=== PATIENT | female | born 1940 | race Caucasian/White ===

== ENCOUNTER 2019-04-08 00:31 | Inpatient (IN) | payer MEDICARE, BC ==
[~2019-04-08] VITALS: Ht 157.5 cm; Wt 92.1 kg
[2019-04-08] MEDS ORDERED: BACI3.5O8 RIGHTEYE (03:30)
[2019-04-08] MEDS ORDERED: METO50TA6 PO (03:30)
[2019-04-08] MEDS ORDERED: LEVO75TA5 PO (03:30)
[2019-04-08] MEDS ORDERED: SIMV40TA3 PO (03:30)
[2019-04-08] MEDS ORDERED: ONDA4TAB11 PO (03:30)
[2019-04-08] MEDS ORDERED: HYOS0.1279 PO (03:30)
[2019-04-08] MEDS ORDERED: ESTR0.45 PO (03:30)
[2019-04-08] MEDS ORDERED: OMEP20CA10 PO (03:30)
[2019-04-08] MEDS ORDERED: LISI1TAB19 PO (03:30)
[2019-04-08] MEDS ORDERED: PEG15DRO2 OP (03:30)
[2019-04-08 03:40] VITALS: BP 188/99
[2019-04-08 07:00] VITALS: BP 157/90
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
[2019-04-08 11:00] VITALS: BP 145/84
[2019-04-08] MEDS ORDERED: FLU VAX QS 2019-20 (36MOS+)/PF 0.5 ML SYRINGE. VAX IM ONE (11:00)
[2019-04-08 11:43] LABS: BASO % 1 % (0-3); EOS # 0.2 x10^3/uL (0.0-0.7); EOS % 4 % (0-3); HEMATOCRIT 45.4 % (36.0-47.0); HEMOGLOBIN 15.6 g/dL (12.0-15.5); LYMPH # 1.3 x10^3/uL (1.0-4.8); LYMPH % 25 % (24-48); MEAN CORPUSCULAR HEMOGLOBIN 32 pg (25-35); MEAN CORPUSCULAR HGB CONC 34 g/dL (31-37); MEAN CORPUSCULAR VOLUME 93 fL (79-100); MONO # 0.6 x10^3/uL (0.0-1.1); MONO % 11 % (0-9); NEUT % 59 % (31-73); PLATELET COUNT 248 x10^3/uL (140-400); RED BLOOD COUNT 4.88 x10^6/uL (3.50-5.40); RED CELL DISTRIBUTION WIDTH 13.7 % (11.5-14.5); WHITE BLOOD COUNT 5.2 x10^3/uL (4.0-11.0)
[2019-04-08 12:09] LABS: ALBUMIN 3.7 g/dL (3.4-5.0); CALCIUM 10.7 mg/dL (8.5-10.1); CREATININE 0.8 mg/dL (0.6-1.0); GFR 69.2; POTASSIUM 4.3 mmol/L (3.5-5.1); TOTAL BILIRUBIN 0.5 mg/dL (0.2-1.0); TOTAL PROTEIN 7.4 g/dL (6.4-8.2)
--- NOTE | 2019-04-08 13:39 | CARD ---
MR#: [id number] Date of Study: 04/08/2019 Ordering Physician: NAHID CLIFFORD, Referring Physician: NAHID CLIFFORD, Tech: Ene Mckinley LUCIA APPROVED REPORT EXAM: Two-dimensional and M-mode echocardiogram with Doppler, color Doppler with bubble study. Other Information Quality : Technically LimitedHR: 84bpm Rhythm : NSRTechnically limited study due to body habitus. INDICATION CVA/TIA Echo Enhancing Agent Indication: Rule Out Septal Defect Agent/Amount Used: Agitated Saline 8mL 2D DIMENSIONS RVDd3.0 (2.9-3.5cm)Left Atrium(2D)2.8 (1.6-4.0cm) IVSd1.3 (0.7-1.1cm)Aortic Root(2D)2.8 (2.0-3.7cm) LVDd3.8 (3.9-5.9cm)LVOT Diameter1.9 (1.8-2.4cm) PWd1.1 (0.7-1.1cm)LVDs2.7 (2.5-4.0cm) FS (%) 29.3 %SV34.2 ml LVEF(%)57.0 (>50%) M-Mode DIMENSIONS Left Atrium(MM)2.95 (2.5-4.0cm)Aortic Root3.09 (2.2-3.7cm) Aortic Valve AoV Peak Kris.174.5cm/sAoV VTI29.2cm AO Peak GR.12.2mmHgLVOT VTI 18.96cm AO Mean GR.6mmHgAVA (VTI)1.80cm2 Mitral Valve MV E [place]65.5cm/sMV DECEL [id number] MV A Gyfgffwi81.9cm/sE/A Ratio0.8 MV A [id number] TDI Lateral E' P. V5.47cm/sE/Lateral E'13.4 LEFT VENTRICLE The left ventricle is normal size. There is mild concentric left ventricular hypertrophy. The left ve ntricular systolic function is normal. The Ejection Fraction is 55-60%. There is normal LV segmental wall motion. Transmitral Doppler flow pattern is Grade I-abnormal relaxation pattern. RIGHT VENTRICLE The right ventricle is normal size. There is normal right ventricular wall thickness. The right ventr icular systolic function is normal. ATRIA The left atrium size is normal. The right atrium size is normal. The interatrial septum is intact wit h no evidence for an atrial septal defect or patent foramen ovale as noted on 2-D or Doppler imaging. Injection of bubbles documented no interatrial shunt. AORTIC VALVE The aortic valve is not well visualized. The aortic valve is probably trileaflet. Doppler and Color F low revealed no significant aortic regurgitation. There is no significant aortic valvular stenosis. MITRAL VALVE The mitral valve is thickened but opens well. There is no evidence of mitral valve prolapse. There is no mitral valve stenosis. Doppler and Color-flow revealed trace mitral regurgitation. TRICUSPID VALVE The tricuspid valve is normal in structure and function. Doppler and Color Flow revealed no tricuspid valve regurgitation noted. There is no tricuspid valve prolapse or vegetation. There is no tricuspid valve stenosis. PULMONIC VALVE The pulmonic valve is not well visualized. GREAT VESSELS The aortic root is normal in size. The ascending aorta is normal in size. The IVC is normal in size a nd collapses >50% with inspiration. PERICARDIAL EFFUSION There is no evidence of significant pericardial effusion. Critical Notification Critical Value: No <Conclusion> The left ventricular systolic function is normal. The Ejection Fraction is 55-60%. There is normal LV segmental wall motion. Transmitral Doppler flow pattern is Grade I-abnormal relaxation pattern. Trace mitral regurgitation. There is no evidence of significant pericardial effusion. Injection of bubbles documented no interatrial shunt. Signed by : Santo Delaney, Electronically Approved : 04/08/2019 13:38:29
--- NOTE | 2019-04-08 14:50 | RAD ---
EXAM: Carotid Doppler sonogram. HISTORY: Transient ischemic attack. TECHNIQUE: Gilbert scale and color Doppler sonographic evaluation of the neck with spectral waveform analysis was performed and static images are submitted for review. FINDINGS: There is mild atherosclerotic plaque within the left greater than right carotid bulbs. The peak systolic velocity within the right common carotid artery is 82 cm/sec. The peak systolic velocity within the right internal carotid artery is 84 cm/sec and the end diastolic velocity within the right internal carotid artery is 19 cm/sec. The peak systolic velocity within the left common carotid artery is 83 cm/sec. The peak systolic velocity within the left internal carotid artery is 64 cm/sec and the end diastolic velocity within the left internal carotid artery is 25 cm/sec. There is normal antegrade flow within both vertebral arteries. IMPRESSION: No Doppler evidence of hemodynamically significant stenosis within the carotid or vertebral arteries. PQRS Compliance Statement - Stenosis calculations for CT, MR and conventional angiography are based upon measurement of the distal ICA diameter in accordance with the NASCET methodology. Stenosis calculations for carotid ultrasound studies are derived from validated velocity criteria which are known to correlate with the NASCET methodology. Electronically signed by: Malissa Mckeon MD (04/08/2019 2:47 PM) [place] [id number]
[2019-04-08 15:00] VITALS: BP 147/89
[2019-04-08] MEDS ORDERED: ALBUTEROL SULFATE 2.5 MG/3 ML NEBU. NEB PRN (16:00)
[2019-04-08] MEDS ORDERED: MAG HYDROX/ALUMINUM HYD/SIMETH 30 ML ORAL.SUSP PO PRN (16:00)
[2019-04-08] MEDS ORDERED: 0.9 % SODIUM CHLORIDE 10 ML DISP.SYRIN. IV PRN (16:00)
[2019-04-08] MEDS ORDERED: DOCUSATE SODIUM 100 MG CAPSULE. PO PRN (16:00)
[2019-04-08] MEDS ORDERED: ACETAMINOPHEN 325 MG TABLET. PO PRN (16:00)
[2019-04-08] MEDS ORDERED: hydrALAZINE 20 MG/ML VIAL. IVP PRN (16:00)
[2019-04-08] MEDS ORDERED: ONDANSETRON PF 4 MG/2 ML VIAL. IVP PRN (16:00)
[2019-04-08] MEDS ORDERED: guaiFENesin ORAL 200 MG/10 ML LIQUID. PO PRN (16:00)
[2019-04-08] MEDS ORDERED: ONDANSETRON ODT 4 MG TAB.RAPDIS. PO PRN (16:00)
[2019-04-08] MEDS ORDERED: cloNIDine HCL 0.1 MG TABLET PO PRN (16:00)
[2019-04-08 16:21] LABS: PROTHROMBIN TIME PATIENT 12.5 SEC (11.7-14.0)
[2019-04-08] MEDS ORDERED: HYOSCYAMINE 0.125 MG TAB.RAPDIS PO PRN (16:30)
[2019-04-08] MEDS ORDERED: HYOSCYAMINE 0.125 MG TAB.RAPDIS PO SCH (16:30)
[2019-04-08] MEDS: LEVOTHYROXINE 75 MCG TABLET PO SCH (17:18)
[2019-04-08] MEDS: hydroCHLOROthiazide 12.5 MG CAPSULE PO SCH (17:18)
[2019-04-08] MEDS: LISINOPRIL 20 MG TABLET PO SCH (17:19)
[2019-04-08] MEDS: PANTOPRAZOLE 40 MG TABLET.DR. PO SCH (17:19)
[2019-04-08] MEDS: ASPIRIN CHEWABLE 81 MG TABLET. PO SCH (17:21)
[2019-04-08 19:56] VITALS: BP 128/82
[2019-04-08] MEDS ORDERED: BACITRACIN RIGHTEYE SCH (21:00)
[2019-04-08] MEDS: SIMVASTATIN 40 MG TABLET. PO SCH (21:21)
[2019-04-08] MEDS: METOPROLOL TART IMMED RELEASE 50 MG TABLET. PO SCH (21:22)
[2019-04-08] MEDS: POLYVINYL ALCOHOL 1.4% OPHTH SOLUTION 15ML BOTTLE. OU SCH (21:22)
[2019-04-08 23:35] VITALS: BP 115/53
[2019-04-09 03:08] VITALS: BP 122/63
[2019-04-09] MEDS: LEVOTHYROXINE 75 MCG TABLET PO SCH (06:35)
[2019-04-09 07:32] VITALS: BP 136/56
[2019-04-09 07:49] LABS: ALBUMIN 3.3 g/dL (3.4-5.0); ALBUMIN/GLOBULIN RATIO 1.2 (1.0-1.7); CALCIUM 10.2 mg/dL (8.5-10.1); CREATININE 0.8 mg/dL (0.6-1.0); GFR 69.2; POTASSIUM 4.3 mmol/L (3.5-5.1); TOTAL BILIRUBIN 0.4 mg/dL (0.2-1.0); TOTAL PROTEIN 6.1 g/dL (6.4-8.2)
[2019-04-09 07:56] LABS: CHOLESTEROL/HDL RATIO 4.5
--- NOTE | 2019-04-09 08:22 | PDOC ---
PROGRESS NOTES History of Present Illness History of Present Illness VTE Prophylaxis Ordered VTE Prophylaxis Devices: Yes VTE Pharmacological Prophylaxi: Yes Assessment/Plan Assessment/Plan IMPRESSION 1. Acute CVA FRONTAL LOBE? 2. small vessel ischemic [employer] changes on ct head 3. MORBID OBESITY 4. No Doppler evidence of hemodynamically significant stenosis within the carotid or vertebral arteries. 04/08 5. HYPERTENSION 6. GERD 7. mild hypercalcemia, BETTER 04/09 8. Injection of bubbles documented no interatrial shunt. ON ECHO plan admit INR MRI HEAD [address] [place] [address] TELE echo neurochecks q 4 hrs PT/OT/ST Neurology consult doppler carotids OK statin ASA DVT PROPHYLAXIS HOME MEDS AVOID ESTROGEN supplement due to increased risk of thrombosis FOLLOW ca level 04/09 D/W SON IN ROOM 37 MIN PT EXAM, CHART REVIEW, > 50% OF TIME SPENT WITH EXAM, CHART REVIEW, PT CARE COORDINATION Vitals Vitals Vital Signs Date Time Temp Pulse Resp B/P (MAP) Pulse Ox O2 Delivery O2 Flow Rate FiO2 04/09/19 07:32 98.1 55 18 136/56 (82) 97 Room Air 98.1 Physical Exam Physical Exam Physical Exam General: Alert, Oriented X3, Cooperative, No acute distress HEENT: Atraumatic, PERRLA, EOMI, Mucous membr. moist/pink Lungs: Clear to auscultation, Normal air movement Heart: S1S2, RRR, no thrills Cardiovascular: S1, S2 Breasts: Not examined Abdomen: Normal bowel sounds, Soft Rectal Exam: not examined Extremities: No cyanosis Skin: No significant lesion Neuro: Normal speech, Cranial nerves 3-12 NL Psych/Mental Status: Mental status NL, Mood NL General: Alert, Oriented X3, Cooperative, No acute distress Lungs: Clear Abdomen: Normal bowel sounds, Soft Extremities: No clubbing, No cyanosis, No edema Skin: No significant lesion Labs LABS M-Mode DIMENSIONS Left Atrium(MM) 2.95 (2.5-4.0cm) Aortic Root 3.09 (2.2-3.7cm) Aortic Valve AoV Peak Kris. 174.5cm/s AoV VTI 29.2cm AO Peak GR. 12.2mmHg LVOT VTI 18.96cm AO Mean GR. 6mmHg LIUDMILA (VTI) 1.80cm2 Mitral Valve MV E Velocity 73.5cm/s MV DECEL TIME 209ms MV A Velocity 93.9cm/s E/A Ratio 0.8 MV A Duration 83ms TDI Lateral E' P. V 5.47cm/s E/Lateral E' 13.4 LEFT VENTRICLE The left ventricle is normal size. There is mild concentric left ventricular hypertrophy. The left ventricular systolic function is normal. The Ejection Fraction is 55-60%. There is normal LV segmental wall motion. Transmitral Doppler flow pattern is Grade I-abnormal relaxation pattern. RIGHT VENTRICLE The right ventricle is normal size. There is normal right ventricular wall thickness. The right ventricular systolic function is normal. ATRIA The left atrium size is normal. The right atrium size is normal. The interatrial septum is intact with no evidence for an atrial septal defect or patent foramen ovale as noted on 2-D or Doppler imaging. Injection of bubbles documented no interatrial shunt. AORTIC VALVE The aortic valve is not well visualized. The aortic valve is probably trileaflet. Doppler and Color Flow revealed no significant aortic regurgitation. There is no significant aortic valvular stenosis. MITRAL VALVE The mitral valve is thickened but opens well. There is no evidence of mitral valve prolapse. There is no mitral valve stenosis. Doppler and Color-flow revealed trace mitral regurgitation. TRICUSPID VALVE The tricuspid valve is normal in structure and function. Doppler and Color Flow revealed no tricuspid valve regurgitation noted. There is no tricuspid valve prolapse or vegetation. There is no tricuspid valve stenosis. PULMONIC VALVE The pulmonic valve is not well visualized. GREAT VESSELS The aortic root is normal in size. The ascending aorta is normal in size. The IVC is normal in size and collapses >50% with inspiration. PERICARDIAL EFFUSION There is no evidence of significant pericardial effusion. Critical Notification Critical Value: No <Conclusion> The left ventricular systolic function is normal. The Ejection Fraction is 55-60%. There is normal LV segmental wall motion. Transmitral Doppler flow pattern is Grade I-abnormal relaxation pattern. Trace mitral regurgitation. There is no evidence of significant pericardial effusion. Injection of bubbles documented no interatrial shunt. Signed by : Almas Tee, Electronically Approved : 04/08/2019 13:38:29 DICTATED and SIGNED BY: ALMAS TEE MD DATE: 04/08/19 1320 EX: F EXAM STATUS: ADM IN ORD. PHYSICIAN: NAHID CLIFFORD MD REASON: TIA PROCEDURE: DOPPLER CAROTID BILAT EXAM: Carotid Doppler sonogram. HISTORY: Transient ischemic attack. TECHNIQUE: Gilbert scale and color Doppler sonographic evaluation of the neck with spectral waveform analysis was performed and static images are submitted for review. FINDINGS: There is mild atherosclerotic plaque within the left greater than right carotid bulbs. The peak systolic velocity within the right common carotid artery is 82 cm/sec. The peak systolic velocity within the right internal carotid artery is 84 cm/sec and the end diastolic velocity within the right internal carotid artery is 19 cm/sec. The peak systolic velocity within the left common carotid artery is 83 cm/sec. The peak systolic velocity within the left internal carotid artery is 64 cm/sec and the end diastolic velocity within the left internal carotid artery is 25 cm/sec. There is normal antegrade flow within both vertebral arteries. IMPRESSION: No Doppler evidence of hemodynamically significant stenosis within the carotid or vertebral arteries. PQRS Compliance Statement - Stenosis calculations for CT, MR and conventional angiography are based upon measurement of the distal ICA diameter in accordance with the NASCET methodology. Stenosis calculations for carotid ultrasound studies are derived from validated velocity criteria which are known to correlate with the NASCET methodology. Electronically signed by: Malissa Mckeon MD (04/08/2019 2:47 PM) [facility] Laboratory Tests Test 04/08/19 11:05 04/09/19 06:05 White Blood Count 5.2 x10^3/uL (4.0-11.0) Red Blood Count 4.88 x10^6/uL (3.50-5.40) Hemoglobin 15.6 g/dL (12.0-15.5) Hematocrit 45.4 % (36.0-47.0) Mean Corpuscular Volume 93 fL (79-100) Mean Corpuscular Hemoglobin 32 pg (25-35) Mean Corpuscular Hemoglobin Concent 34 g/dL (31-37) Red Cell Distribution Width 13.7 % (11.5-14.5) Platelet Count 248 x10^3/uL (140-400) Neutrophils (%) (Auto) 59 % (31-73) Lymphocytes (%) (Auto) 25 % (24-48) Monocytes (%) (Auto) 11 % (0-9) Eosinophils (%) (Auto) 4 % (0-3) Basophils (%) (Auto) 1 % (0-3) Neutrophils # (Auto) 3.0 x10^3/uL (1.8-7.7) Lymphocytes # (Auto) 1.3 x10^3/uL (1.0-4.8) Monocytes # (Auto) 0.6 x10^3/uL (0.0-1.1) Eosinophils # (Auto) 0.2 x10^3/uL (0.0-0.7) Basophils # (Auto) 0.0 x10^3/uL (0.0-0.2) Prothrombin Time 12.5 SEC (11.7-14.0) Prothromb Time International Ratio 1.0 (0.8-1.1) Sodium Level 141 mmol/L (136-145) 142 mmol/L (136-145) Potassium Level 4.3 mmol/L (3.5-5.1) 4.3 mmol/L (3.5-5.1) Chloride Level 104 mmol/L (98-107) 107 mmol/L (98-107) Carbon Dioxide Level 30 mmol/L (21-32) 29 mmol/L (21-32) Anion Gap 7 (6-14) 6 (6-14) Blood Urea Nitrogen 10 mg/dL (7-20) 14 mg/dL (7-20) Creatinine 0.8 mg/dL (0.6-1.0) 0.8 mg/dL (0.6-1.0) Estimated GFR (Cockcroft-Gault) 69.2 69.2 BUN/Creatinine Ratio 13 (6-20) 18 (6-20) Glucose Level 108 mg/dL (70-99) 112 mg/dL (70-99) Calcium Level 10.7 mg/dL (8.5-10.1) 10.2 mg/dL (8.5-10.1) Total Bilirubin 0.5 mg/dL (0.2-1.0) 0.4 mg/dL (0.2-1.0) Aspartate Amino Transf (AST/SGOT) 41 U/L (15-37) 41 U/L (15-37) Alanine Aminotransferase (ALT/SGPT) 52 U/L (14-59) 64 U/L (14-59) Alkaline Phosphatase 55 U/L (46-116) 42 U/L (46-116) Total Protein 7.4 g/dL (6.4-8.2) 6.1 g/dL (6.4-8.2) Albumin 3.7 g/dL (3.4-5.0) 3.3 g/dL (3.4-5.0) Albumin/Globulin Ratio 1.0 (1.0-1.7) 1.2 (1.0-1.7) Triglycerides Level 147 mg/dL (0-150) Cholesterol Level 188 mg/dL (0-200) LDL Cholesterol, Calculated 117 mg/dL (0-100) VLDL Cholesterol, Calculated 29 mg/dL (0-40) Non-HDL Cholesterol Calculated 146 mg/dL (0-129) HDL Cholesterol 42 mg/dL (40-60) Cholesterol/HDL Ratio 4.5 Assessment and Plan Assessmemt and Plan IMPRESSION: No Doppler evidence of hemodynamically significant stenosis within the carotid or vertebral arteries. * B LEs wfl for age Sitting Balance * 4+ Moves 1-2" all planes Standing Balance * 5 moves >2" all planes Pain Location * pt denies any pain Rolling Right Assistance Required * Independent Supine to Sit Assistance Required * Independent Sit to Supine Assistance Required * Independent Transfer Assistance Required * Independent Transfer Type * Sit to Stand Transfer Assistive Device * No Device Transfer Comments * Pt able to tranfer Marivel throughout session without any lob noted. Ambulation Assistance Required * Independent Ambulation Assistive Device * No Device Ambulation Distance * 200 ft Ambulation Comments * Pt ambulating Marivel without any AD. Pt reports she is at baseline. Stairs Assistance Required * Independent Number of Stairs * 1 Stairs Assistive Device * Rail on Right Stairs Comments * Pt demonstrated traversing a step Marivel withou one HR use. Sitting Exercises * Ankle Pumps * Hip Abduction * Long Arc Quads * Marching * Glut Sets * Pillow Squeeze Sitting Exercises Comments * x 10 reps; rec 3x/day x 10 reps; AP hourly Bed Mobility For KU Functional Outcomes Tool * Complete Hamlet Transfers Bed To Chair For KU Functional Outcomes Tool * Complete Hamlet Gait Walking On Level Surfaces * Complete Hamlet Walking Distances For KU Functional Tool * 151'-200' Number of KU Functional Outcomes Tool Questions Answered * 4 KU Functional Outcomes Tool Score * 6.0 Current G code * G8978 Mobility Current Modifier (Impairment, Restriction or Impairment) * CI 1-19% Impaired Goal G code * G8979 Mobility Goal Modifier (Impairment, Restriction or Impairment) * CI 1-19% Impaired Discharge G code * G8980 Mobility Discharge Modifier (Impairment, Restriction or Impairment) * CI 1-19% Impaired Testing considered to assess G code/modifier * KU Functional Outcomes Patient Stated Goal * return home Clinical Presentation * Stable Evaluation Complexity Level * Low Complexity Pt/caregiver agrees with plan of care/goals * Yes Patient condition at conclusion of therapy * Pt in chair * Call light in reach * Phone in reach * PtIn no apparent distress * Pt denies further needs No Further Skilled P.T. Intervention Required * Eval only-No PT Needs Discharge Recommendations * Home independent Discharge Recommendation - DME * None Discharge Recommendation Comments * Pt owns necessary equipment; return home Prior Functional Status * No known sp/sw deficit Other Related Factors * Pt and friend Elissa reported pt's s/s resolved since adm Pain Score * 0 Pain Scale Type * Descriptive Intelligibility Words * Within Functional Limits Intelligibility Sentences * Within Functional Limits Voice Quality * Within Functional Limits Voice Pitch * Within Functional Limits Voice Intensity * Within Functional Limits Respiratory Function * Within Functional Limits Lingual Strength/ROM * Within Normal Limits Labial Strength/ROM * Within Normal Limits Volitional Cough/Throat Clear * Within Normal Limits Palatal Elevation * Within Normal Limits Additional Information - Oral Motor * R facial asymmetry d/t prior injury and nerve damage. Body Position * Within Functional Limits Head Position * Within Functional Limits Accepting Bolus * Within Functional Limits Thin Liquid Presented Via: * cup Oral Phase Summary - Thin Liquid * Within Functional Limits Oral Containment - Thin Liquid * Within Functional Limits Bolus Prep/A-P Transport - Thin Liquid * Within Normal Limits Oral Residue - Thin Liquid * None Pharyngeal Phase Summary - Thin Liquid * Within Functional Limits Pharyngeal Swallow Initiation - Thin Liquid * Within Functional Limits Hyolaryngeal Excursion - Thin Liquid * Within Functional Limits Signs of Aspiration - Thin Liquid * None Additional Information - Pharyngeal Phase - Thin Liquid * Timely and complete swallow w/o s/s aspiration x 6-8oz thin via cup in consecutive swallows. Oral Phase Summary - Puree * Within Functional Limits Oral Containment - Puree * Within Functional Limits Bolus Prep/A-P Transport - Puree * Within Normal Limits Oral Residue - Puree * Minimal * Mild Pharyngeal Stage Summary - Puree * Within Functional Limits Pharyngeal Swallow Initiation - Puree * Within Functional Limits Hyolaryngeal Excursion - Puree * Within Functional Limits Signs of Aspiration - Puree * None Oral Phase Summary - Regular Solids * Within Functional Limits Oral Containment - Regular Solids * Within Functional Limits Bolus Prep/A-P Transport - Regular Solid * Within Normal Limits Mastication - Regular Solid * Within Functional Limits Oral Residue - Regular Solid * Mild Additional Information - Oral Phase - Regular Solid * Mild diffuse oral residue. Pharyngeal Stage Summary - Regular * Within Functional Limits Pharyngeal Swallow Initiation - Regular Solid * Within Functional Limits Hyolaryngeal Excursion - Regular Solid * Within Functional Limits Signs of Aspiration - Regular Solid * None Identified Impairments Meriting Skilled Interventions * None Diet Texture Recommendations * Regular Liquid Texture Recommendations * Thin/Regular Medication Recommendations * With Thin Liquid Recommended Swallow Strategies * Upright Position Recommended Supervision with Meals * Intermittent Communicated Results With: * PtElissa, pt's friend, and JONATHAN Bear Additional Details/Impressions * Results as outlined above. IMPRESSIONS: Functional oropharyngeal swallow. No evidence or oropharyngeal delay or weakness. Pt indicates s/s resolved since adm. No evidence of word finding issues in conversation this date or in confrontational naming task. Friend Elissa present and also agreed pt seems back to baseline. RECOMMENDATIONS: Initiate regular consistency diet w/thin liquids. General precautions. No additional [employer]GER f/u indicated at this time. Results and recs DW pt, friend and JONATHAN Bear. Skilled Services Needed * Eval Only-No Tx Indicated Comment Review of Relevant I have reviewed the following items mary (where applicable) has been applied. Labs Laboratory Tests Test 04/08/19 11:05 04/09/19 06:05 White Blood Count 5.2 x10^3/uL (4.0-11.0) Red Blood Count 4.88 x10^6/uL (3.50-5.40) Hemoglobin 15.6 g/dL (12.0-15.5) Hematocrit 45.4 % (36.0-47.0) Mean Corpuscular Volume 93 fL (79-100) Mean Corpuscular Hemoglobin 32 pg (25-35) Mean Corpuscular Hemoglobin Concent 34 g/dL (31-37) Red Cell Distribution Width 13.7 % (11.5-14.5) Platelet Count 248 x10^3/uL (140-400) Neutrophils (%) (Auto) 59 % (31-73) Lymphocytes (%) (Auto) 25 % (24-48) Monocytes (%) (Auto) 11 % (0-9) Eosinophils (%) (Auto) 4 % (0-3) Basophils (%) (Auto) 1 % (0-3) Neutrophils # (Auto) 3.0 x10^3/uL (1.8-7.7) Lymphocytes # (Auto) 1.3 x10^3/uL (1.0-4.8) Monocytes # (Auto) 0.6 x10^3/uL (0.0-1.1) Eosinophils # (Auto) 0.2 x10^3/uL (0.0-0.7) Basophils # (Auto) 0.0 x10^3/uL (0.0-0.2) Prothrombin Time 12.5 SEC (11.7-14.0) Prothromb Time International Ratio 1.0 (0.8-1.1) Sodium Level 141 mmol/L (136-145) 142 mmol/L (136-145) Potassium Level 4.3 mmol/L (3.5-5.1) 4.3 mmol/L (3.5-5.1) Chloride Level 104 mmol/L (98-107) 107 mmol/L (98-107) Carbon Dioxide Level 30 mmol/L (21-32) 29 mmol/L (21-32) Anion Gap 7 (6-14) 6 (6-14) Blood Urea Nitrogen 10 mg/dL (7-20) 14 mg/dL (7-20) Creatinine 0.8 mg/dL (0.6-1.0) 0.8 mg/dL (0.6-1.0) Estimated GFR (Cockcroft-Gault) 69.2 69.2 BUN/Creatinine Ratio 13 (6-20) 18 (6-20) Glucose Level 108 mg/dL (70-99) 112 mg/dL (70-99) Calcium Level 10.7 mg/dL (8.5-10.1) 10.2 mg/dL (8.5-10.1) Total Bilirubin 0.5 mg/dL (0.2-1.0) 0.4 mg/dL (0.2-1.0) Aspartate Amino Transf (AST/SGOT) 41 U/L (15-37) 41 U/L (15-37) Alanine Aminotransferase (ALT/SGPT) 52 U/L (14-59) 64 U/L (14-59) Alkaline Phosphatase 55 U/L (46-116) 42 U/L (46-116) Total Protein 7.4 g/dL (6.4-8.2) 6.1 g/dL (6.4-8.2) Albumin 3.7 g/dL (3.4-5.0) 3.3 g/dL (3.4-5.0) Albumin/Globulin Ratio 1.0 (1.0-1.7) 1.2 (1.0-1.7) Triglycerides Level 147 mg/dL (0-150) Cholesterol Level 188 mg/dL (0-200) LDL Cholesterol, Calculated 117 mg/dL (0-100) VLDL Cholesterol, Calculated 29 mg/dL (0-40) Non-HDL Cholesterol Calculated 146 mg/dL (0-129) HDL Cholesterol 42 mg/dL (40-60) Cholesterol/HDL Ratio 4.5 Laboratory Tests Test 04/08/19 11:05 04/09/19 06:05 White Blood Count 5.2 x10^3/uL (4.0-11.0) Red Blood Count 4.88 x10^6/uL (3.50-5.40) Hemoglobin 15.6 g/dL (12.0-15.5) Hematocrit 45.4 % (36.0-47.0) Mean Corpuscular Volume 93 fL (79-100) Mean Corpuscular Hemoglobin 32 pg (25-35) Mean Corpuscular Hemoglobin Concent 34 g/dL (31-37) Red Cell Distribution Width 13.7 % (11.5-14.5) Platelet Count 248 x10^3/uL (140-400) Neutrophils (%) (Auto) 59 % (31-73) Lymphocytes (%) (Auto) 25 % (24-48) Monocytes (%) (Auto) 11 % (0-9) Eosinophils (%) (Auto) 4 % (0-3) Basophils (%) (Auto) 1 % (0-3) Neutrophils # (Auto) 3.0 x10^3/uL (1.8-7.7) Lymphocytes # (Auto) 1.3 x10^3/uL (1.0-4.8) Monocytes # (Auto) 0.6 x10^3/uL (0.0-1.1) Eosinophils # (Auto) 0.2 x10^3/uL (0.0-0.7) Basophils # (Auto) 0.0 x10^3/uL (0.0-0.2) Prothrombin Time 12.5 SEC (11.7-14.0) Prothromb Time International Ratio 1.0 (0.8-1.1) Sodium Level 141 mmol/L (136-145) 142 mmol/L (136-145) Potassium Level 4.3 mmol/L (3.5-5.1) 4.3 mmol/L (3.5-5.1) Chloride Level 104 mmol/L (98-107) 107 mmol/L (98-107) Carbon Dioxide Level 30 mmol/L (21-32) 29 mmol/L (21-32) Anion Gap 7 (6-14) 6 (6-14) Blood Urea Nitrogen 10 mg/dL (7-20) 14 mg/dL (7-20) Creatinine 0.8 mg/dL (0.6-1.0) 0.8 mg/dL (0.6-1.0) Estimated GFR (Cockcroft-Gault) 69.2 69.2 BUN/Creatinine Ratio 13 (6-20) 18 (6-20) Glucose Level 108 mg/dL (70-99) 112 mg/dL (70-99) Calcium Level 10.7 mg/dL (8.5-10.1) 10.2 mg/dL (8.5-10.1) Total Bilirubin 0.5 mg/dL (0.2-1.0) 0.4 mg/dL (0.2-1.0) Aspartate Amino Transf (AST/SGOT) 41 U/L (15-37) 41 U/L (15-37) Alanine Aminotransferase (ALT/SGPT) 52 U/L (14-59) 64 U/L (14-59) Alkaline Phosphatase 55 U/L (46-116) 42 U/L (46-116) Total Protein 7.4 g/dL (6.4-8.2) 6.1 g/dL (6.4-8.2) Albumin 3.7 g/dL (3.4-5.0) 3.3 g/dL (3.4-5.0) Albumin/Globulin Ratio 1.0 (1.0-1.7) 1.2 (1.0-1.7) Triglycerides Level 147 mg/dL (0-150) Cholesterol Level 188 mg/dL (0-200) LDL Cholesterol, Calculated 117 mg/dL (0-100) VLDL Cholesterol, Calculated 29 mg/dL (0-40) Non-HDL Cholesterol Calculated 146 mg/dL (0-129) HDL Cholesterol 42 mg/dL (40-60) Cholesterol/HDL Ratio 4.5 Medications Current Medications Influenza Virus Vaccine Quadrival (Afluria Quad 2018-20 (3yr Up) Syringe) 0.5 ml ONCE ONCE VAX IM Last administered on 04/08/19 17:21; Start 04/08/19 at 11:00; Stop 04/08/19 at 11:01; Status DC Aspirin (Children'S Aspirin) 81 mg DAILYWBKFT PO Last administered on 04/08/19 17:21; Start 04/08/19 at 11:00 Metoprolol Tartrate (Lopressor) 50 mg BID PO Last administered on 04/08/19 21:22; Start 04/08/19 at 21:00 Simvastatin (Zocor) 40 mg HS PO Last administered on 04/08/19 21:21; Start 04/08/19 at 21:00 Non-Formulary Medication (Bacitracin ) 1 edvin TID RIGHTEYE ; Start 04/08/19 at 21:00; Status UNV Hyoscyamine (Anaspaz) 0.125 mg DAILY PO ; Start 04/08/19 at 16:30; Stop 04/08/19 at 16:03; Status DC Lisinopril (Prinivil) 20 mg DAILY PO Last administered on 04/08/19 17:19; Start 04/08/19 at 16:30 Pantoprazole Sodium (Protonix) 40 mg DAILYAC PO Last administered on 04/08/19 17:19; Start 04/08/19 at 16:30 Ondansetron HCl (Zofran Odt) 4 mg PRN Q6HRS PRN PO NAUSEA; Start 04/08/19 at 16:00 Artificial Tears (Artificial Tears) 1 drop TID OU Last administered on 04/08/19 21:22; Start 04/08/19 at 21:00 Levothyroxine Sodium (Synthroid) 75 mcg DAILY06 PO Last administered on 04/09/19at 06:35; Start 04/08/19 at 16:00 Hydralazine HCl (Apresoline Inj) 10 mg PRN Q4HRS PRN IVP ELEVATED BP, SEE COMMENTS; Start 04/08/19 at 16:00 Hydrochlorothiazide (Microzide) 12.5 mg DAILY PO Last administered on 04/08/19at 17:18; Start 04/08/19 at 16:30 Sodium Chloride (Normal Saline Flush) 3 ml QSHIFT PRN IV AFTER MEDS AND BLOOD DRAWS; Start 04/08/19 at 16:00 Ondansetron HCl (Zofran) 4 mg PRN Q4HRS PRN IVP NAUSEA/VOMITING; Start 04/08/19 at 16:00 Acetaminophen (Tylenol) 650 mg PRN Q4HRS PRN PO TEMP OVER 100.4F OR MILD PAIN; Start 04/08/19 at 16:00 Al Hydroxide/Mg Hydroxide (Mylanta Plus Xs) 30 ml PRN DAILY PRN PO HEARTBURN / GAS; Start 04/08/19 at 16:00 Clonidine HCl (Catapres) 0.1 mg PRN Q6HRS PRN PO SBP>160 OR DBP>90; Start at 16:00 Docusate Sodium (Colace) 100 mg PRN BID PRN PO CONSTIPATION; Start 04/08/19 at 16:00 Albuterol Sulfate (Ventolin Neb Soln) 2.5 mg PRN Q4HRS PRN NEB SHORTNESS OF BREATH; Start 04/08/19 at 16:00 Guaifenesin (Robitussin) 200 mg PRN Q4HRS PRN PO COUGH; Start 04/08/19 at 16:00 Enoxaparin Sodium (Lovenox 40mg Syringe) 40 mg DAILY SQ ; Start 04/09/19 at 09:00 Hyoscyamine (Anaspaz) 0.125 mg PRN QID PRN PO STOMACH CRAMPING; Start 04/08/19 at 16:30 Active Scripts Active Reported Eye Drop Tears (Peg 400/Hypromellose/Glycerin) 15 Ml Drops 15 Ml OP TID Lisinopril-Hctz 20-12.5 Mg Tab (Lisinopril/Hydrochlorothiazide) 1 Each Tablet 1 Tab PO DAILY Premarin (Estrogens, Conjugated) 0.45 Mg Tablet 1 Tab PO DAILY Simvastatin 40 Mg Tablet 1 Tab PO HS Ondansetron Hcl 4 Mg Tablet 1 Tab PO Q6HRS PRN Hyoscyamine Sulfate 0.125 Mg Tablet 1 Tab PO PRN QID PRN Omeprazole 20 Mg Capsule.dr 20 PO DAILY Levothyroxine Sodium 75 Mcg Tablet 75 PO DAILY Metoprolol Tartrate 50 Mg Tablet 1 Tab PO BID Vitals/I & O Vital Sign - Last 24 Hours 04/08/19 04/08/19 04/08/19 04/08/19 08:38 11:00 15:00 17:19 Temp 98.2 98.2 98.2 98.2 Pulse 86 86 86 Resp 18 18 B/P (MAP) 145/84 (104) 147/89 (108) 147/89 Pulse Ox 96 94 O2 Delivery Room Air Room Air Room Air 04/08/19 04/08/19 04/08/19 04/08/19 19:56 20:00 20:44 21:22 Temp 97.8 97.8 Pulse 86 Resp 16 B/P (MAP) 128/82 (97) 128/82 Pulse Ox 97 96 O2 Delivery Room Air Room Air Room Air 04/08/19 04/09/19 04/09/19 23:35 03:08 07:32 Temp 98.3 98.3 98.1 98.3 98.3 98.1 Pulse 67 60 55 Resp 16 16 18 B/P (MAP) 115/53 (73) 122/63 (82) 136/56 (82) Pulse Ox 98 96 97 O2 Delivery Room Air Room Air Room Air Intake and Output 04/08/19 04/08/19 04/09/19 15:00 23:00 07:00 Intake Total 0 ml 200 ml 200 ml Balance 0 ml [address] LOPEZ MD Apr 09, 2019 08:22
[2019-04-09 08:50] LABS: BASO # 0.1 x10^3/uL (0.0-0.2); BASO % 1 % (0-3); EOS # 0.4 x10^3/uL (0.0-0.7); EOS % 7 % (0-3); HEMATOCRIT 42.9 % (36.0-47.0); HEMOGLOBIN 14.5 g/dL (12.0-15.5); LYMPH # 1.2 x10^3/uL (1.0-4.8); LYMPH % 22 % (24-48); MEAN CORPUSCULAR HEMOGLOBIN 32 pg (25-35); MEAN CORPUSCULAR HGB CONC 34 g/dL (31-37); MEAN CORPUSCULAR VOLUME 93 fL (79-100); MONO # 0.6 x10^3/uL (0.0-1.1); MONO % 11 % (0-9); NEUT # 3.2 x10^3/uL (1.8-7.7); NEUT % 59 % (31-73); PLATELET COUNT 223 x10^3/uL (140-400); RED BLOOD COUNT 4.61 x10^6/uL (3.50-5.40); RED CELL DISTRIBUTION WIDTH 14.2 % (11.5-14.5); WHITE BLOOD COUNT 5.5 x10^3/uL (4.0-11.0)
[2019-04-09] MEDS: POLYVINYL ALCOHOL 1.4% OPHTH SOLUTION 15ML BOTTLE. OU SCH ×3 (09:00→21:08)
[2019-04-09] MEDS: hydroCHLOROthiazide 12.5 MG CAPSULE PO SCH (10:54)
[2019-04-09] MEDS: PANTOPRAZOLE 40 MG TABLET.DR. PO SCH (10:54)
[2019-04-09] MEDS: ASPIRIN CHEWABLE 81 MG TABLET. PO SCH (10:54)
[2019-04-09] MEDS: LISINOPRIL 20 MG TABLET PO SCH (10:55)
[2019-04-09] MEDS: ENOXAPARIN 40 MG/0.4 ML SYRINGE. SQ SCH (10:56)
[2019-04-09 11:16] VITALS: BP 143/86
[2019-04-09] MEDS ORDERED: MAGNESIUM HYDROXIDE 2,400 MG/30 ML ORAL.SUSP. PO ONE (11:30)
[2019-04-09 11:44] LABS: BARBITURATES NEG (NEG); BENZODIAZEPINES NEG (NEG); CANNABINOIDS NEG (NEG); COCAINE NEG (NEG); METHADONE NEG (NEG); OPIATES NEG (NEG); PHENCYCLIDINE NEG (NEG)
[2019-04-09 11:48] LABS: AMPHETAMINE/METHAMPHETAMINE NEG (NEG)
--- NOTE | 2019-04-09 12:11 | NUR ---
MRI called acute frontal lobe stroke.
--- NOTE | 2019-04-09 12:13 | RAD ---
MRI of the brain without contrast 04/09/2019 Clinical History: Word finding difficulty. Technique: Unenhanced T1-weighted sagittal and axial, T2-weighted axial and coronal and FLAIR, gradient echo and diffusion-weighted axial images of the brain were obtained. Findings: Comparison is made to patient's CT scan of the head dated 04/07/2019. There is generalized parenchymal atrophy. Patchy, confluent and multiple focal areas of increased signal intensity are seen within the periventricular and subcortical white matter of both cerebral hemispheres on the FLAIR and T2-weighted images consistent with areas of fairly extensive small vessel ischemic disease. A 4 mm focal area of restricted diffusion is seen involving the cortex of the left frontal lobe, superiorly. This is consistent with an area of acute ischemia/infarction. There is no surrounding edema or associated mass effect. No additional acute parenchymal abnormality is seen. No extra-axial fluid collection is noted. Mild mucosal thickening in seen scattered throughout the paranasal sinuses. There are small bilateral mastoid effusions. Normal flow voids are seen within the major vascular structures surrounding the brain parenchyma. Impression: 4 mm focal area of acute ischemia/infarction is seen involving the left frontal lobe. There is no significant surrounding edema or associated mass effect. The patient's nurse was notified of this finding. Electronically signed by: Mehran Ramos MD (04/09/2019 12:10 PM) [id number]
[2019-04-09 12:57] LABS: BILIRUBIN,URINE NEGATIVE (NEG); CLARITY,URINE CLEAR; COLOR,URINE YELLOW; NITRITE,URINE NEGATIVE (NEG); PH,URINE 5.5; PROTEIN,URINE NEGATIVE (NEG-TRACE)
[2019-04-09 13:17] LABS: SQUAMOUS EPITHELIAL CELL,UR MOD /LPF
[2019-04-09 13:18] LABS: BACTERIA,URINE MODERATE /HPF (0-FEW); RBC,URINE 0 /HPF (0-2)
[2019-04-09] MEDS: METOPROLOL TART IMMED RELEASE 50 MG TABLET. PO SCH ×2 (14:44→21:08)
[2019-04-09 15:02] VITALS: BP 122/87
--- NOTE | 2019-04-09 15:13 | NUR ---
SW following pt for dc planning. Chart reviewed. Pt lives at home with spouse. PT/OT notes reviewed- recommends home independent. No other needs noted at this time.
--- NOTE | 2019-04-09 16:25 | PDOC2 ---
NEUROLOGY CONSULT Date of Admission Date of Admission DATE: 04/09/19 TIME: 16:16 Reason for Consult Reason for Consult: NEUROLOGY CONSULTATION 04-08-19 IMPRESSION: CVA syndrome. Word finding difficulties on 04/07/19. 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 HTN. HLD. Obesity. RECOMMENDATIONS/PLAN: ASA daily. Brain MRI. Carotid A US + Doppler. Echo + Bubble study. Lab: see orders. HISTORY OF THE PRESENT ILLNESS: This is a 79-y-old female patient with above medical diseases developed symptoms of word finding difficulties and speech problems around 5:00 pm on 04/07/19. Her symptom lasted to 2:00 am then resolved. Denied sensory or motor deficits. She came to the ER of [facility] on 04/08/19 for further evaluation. Neurology was requested for consultation for TIA. Past Medical History Remote facial trauma with hx neurological damage Cardiovascular: Hyperlipidemia GI: GERD Family History High Cholestrol PAST SURGERY HISTORY: No major surgery recently. ALLERGY: NKDA Unknown MEDICATIONS: Refer to [facility] SOCIAL HISTORY: Lives at home. Denies smoking, drinking, and illicit drug use. REVIEW OF SYSTEMS: Constitutional: Obesity. Head: No traumatic brain or head injury. Skin: No edema, or rash. Ear: No infection. Eyes: No vision loss or color blindness. Nose: No bleeding or purulent discharges. Hearing: No hearing decrease. Neck: No injury. Breast: No history of cancer, masses,or discharges. Cardiac: HTN, HLD. Pulmonary: No COPD. GI: No GI ulcer, GI bleeding. Urinary/genital: UTI. Endocrinologic: Obesity. Skeletomuscular: No muscular atrophy, deformity. Neurological: see HP. Psychiatric: Denies drug use/abuse. Otherwise, not -mfnwk review of systems. PHYSICAL EXAMINATION: General appearance is in subacute distress. HEENT: Normocephalic and nontraumatic. Eyes, nose, ears, and throat are unremarkable. Neck is supple. No lymphadenopathy. No bruits are heard over the carotid artery. No crepitus. Cardiovascular: S1, S2, regular rate and rhythm. Pulmonary: Clear to auscultation bilaterally. Abdomen: Bowel sounds are positive. Abdomen is soft, nontender, and nondisten ded. Extremities: No rash, lesions, or edema. No restriction of range of motion NEUROLOGICAL EXAMINATION: Alert Oriented to time, place and person. PERRL. EOMI. CN: no focal findings. Muscle tone: within normal. Muscle strength: 5 DTR: 2 Plantar reflex: Flexor/Neutral response bilaterally Gait: not examined in bed. Sensory exam: no abnormal findings. No cerebellar signs elicited. F-T-N test accurate. Current Medications Current Medications Current Medications Influenza Virus Vaccine Quadrival (Afluria Quad 2019-20 (3yr Up) Syringe) 0.5 ml ONCE ONCE VAX IM Last administered on 04/08/19 17:21; Start 04/08/19 at 11:00; Stop 04/08/19 at 11:01; Status DC Aspirin (Children'S Aspirin) 81 mg DAILYWBKFT PO Last administered on 04/09/19 10:54; Start 04/08/19 at 11:00; Stop 04/09/19 at 14:24; Status DC Metoprolol Tartrate (Lopressor) 50 mg BID PO Last administered on 04/09/19at 14:44; Start 04/08/19 at 21:00 Simvastatin (Zocor) 40 mg HS PO Last administered on 04/08/19at 21:21; Start 04/08/19 at 21:00 Non-Formulary Medication (Bacitracin ) 1 edvin TID RIGHTEYE ; Start 04/08/19 at 21:00; Status UNV Hyoscyamine (Anaspaz) 0.125 mg DAILY PO ; Start 04/08/19 at 16:30; Stop 04/08/19 at 16:03; Status DC Lisinopril (Prinivil) 20 mg DAILY PO Last administered on 04/09/19at 10:55; Start 04/08/19 at 16:30 Pantoprazole Sodium (Protonix) 40 mg DAILYAC PO Last administered on 04/09/19at 10:54; Start 04/08/19 at 16:30 Ondansetron HCl (Zofran Odt) 4 mg PRN Q6HRS PRN PO NAUSEA; Start 04/08/19 at 16:00 Artificial Tears (Artificial Tears) 1 drop TID OU Last administered on 04/09/19at 14:00; Start 04/08/19 at 21:00 Levothyroxine Sodium (Synthroid) 75 mcg DAILY06 PO Last administered on 04/09/19 06:35; Start 04/08/19 at 16:00 Hydralazine HCl (Apresoline Inj) 10 mg PRN Q4HRS PRN IVP ELEVATED BP, SEE COMMENTS; Start 04/08/19 at 16:00 Hydrochlorothiazide (Microzide) 12.5 mg DAILY PO Last administered on 04/09/19at 10:54; Start 04/08/19 at 16:30 Sodium Chloride (Normal Saline Flush) 3 ml QSHIFT PRN IV AFTER MEDS AND BLOOD DRAWS; Start 04/08/19 at 16:00 Ondansetron HCl (Zofran) 4 mg PRN Q4HRS PRN IVP NAUSEA/VOMITING; Start 04/08/19 at 16:00 Acetaminophen (Tylenol) 650 mg PRN Q4HRS PRN PO TEMP OVER 100.4F OR MILD PAIN; Start 04/08/19 at 16:00 Al Hydroxide/Mg Hydroxide (Mylanta Plus Xs) 30 ml PRN DAILY PRN PO HEARTBURN / GAS; Start 04/08/19 at 16:00 Clonidine HCl (Catapres) 0.1 mg PRN Q6HRS PRN PO SBP>160 OR DBP>90; Start 04/08/19 at 16:00 Docusate Sodium (Colace) 100 mg PRN BID PRN PO CONSTIPATION; Start 04/08/19 at 16:00 Albuterol Sulfate (Ventolin Neb Soln) 2.5 mg PRN Q4HRS PRN NEB SHORTNESS OF BREATH; Start 04/08/19 at 16:00 Guaifenesin (Robitussin) 200 mg PRN Q4HRS PRN PO COUGH; Start 04/08/19 at 16:00 Enoxaparin Sodium (Lovenox 40mg Syringe) 40 mg DAILY SQ Last administered on 04/09/19at 10:56; Start 04/09/19 at 09:00 Hyoscyamine (Anaspaz) 0.125 mg PRN QID PRN PO STOMACH CRAMPING; Start 04/08/19 at 16:30 Magnesium Hydroxide (Milk Of Magnesia) 2,400 mg 1X ONCE PO Last administered on 04/09/19at 11:36; Start 04/09/19 at 11:30; Stop 04/09/19 at 11:31; Status DC Aspirin (Sheela Aspirin) 325 mg DAILYWBKFT PO ; Start 04/10/19 at 08:00 Active Scripts Active Reported Eye Drop Tears (Peg 400/Hypromellose/Glycerin) 15 Ml Drops 15 Ml OP TID Lisinopril-Hctz 20-12.5 Mg Tab (Lisinopril/Hydrochlorothiazide) 1 Each Tablet 1 Tab PO DAILY Premarin (Estrogens, Conjugated) 0.45 Mg Tablet 1 Tab PO DAILY Simvastatin 40 Mg Tablet 1 Tab PO HS Ondansetron Hcl 4 Mg Tablet 1 Tab PO Q6HRS PRN Hyoscyamine Sulfate 0.125 Mg Tablet 1 Tab PO PRN QID PRN Omeprazole 20 Mg Capsule.dr 20 PO DAILY Levothyroxine Sodium 75 Mcg Tablet 75 PO DAILY Metoprolol Tartrate 50 Mg Tablet 1 Tab PO BID Allergies Allergies: Allergies Coded Allergies Type Severity Reaction Last Updated Verified No Known Drug Allergies 04/08/19 No ROS Review of System The patient denies any associated fevers, chills, headache, ear pain, rhinorrhea, sore throat, stiff neck, productive cough, chest pain, shortness of breath, back or flank pain, abdominal pain, nausea, vomiting, diarrhea, constipation, dysuria, rash, numbness, weakness, tingling, incontinence, difficulty ambulating, or diaphoresis. Physical Exam Physical Exam General: Well developed, well nourished, no acute distress, well appearing HEENT: Pupils equally round and reactive to light, EOMI, no discharge, normal conjunctiva Neck: Supple, no nuchal rigidity, no JVD, trachea midline, no tenderness Cardiac: RRR, no murmurs, no gallops, no rubs Chest/Lungs: CTAB, no wheeze, no rhonchi, no crackles Abdomen: soft, non-distended, no guarding, no peritoneal signs, non-tender Back: No tenderness Extremities: no edema, pulses intact, non-tender,capillary refill <3 sec bilateral upper and lower extremities, Neuro: Alert and oriented x 4, no focal deficits, normal speech Vitals Vitals: Vital Signs Date Time Temp Pulse Resp B/P (MAP) Pulse Ox O2 Delivery O2 Flow Rate FiO2 04/09/19 15:02 97.4 82 18 122/87 (99) 97 Room Air 97.4 Labs Labs Laboratory Tests Test 04/08/19 11:05 04/09/19 06:05 04/09/19 11:30 White Blood Count 5.2 x10^3/uL (4.0-11.0) 5.5 x10^3/uL (4.0-11.0) Red Blood Count 4.88 x10^6/uL (3.50-5.40) 4.61 x10^6/uL (3.50-5.40) Hemoglobin 15.6 g/dL (12.0-15.5) 14.5 g/dL (12.0-15.5) Hematocrit 45.4 % (36.0-47.0) 42.9 % (36.0-47.0) Mean Corpuscular Volume 93 fL (79-100) 93 fL (79-100) Mean Corpuscular Hemoglobin 32 pg (25-35) 32 pg (25-35) Mean Corpuscular Hemoglobin Concent 34 g/dL (31-37) 34 g/dL (31-37) Red Cell Distribution Width 13.7 % (11.5-14.5) 14.2 % (11.5-14.5) Platelet Count 248 x10^3/uL (140-400) 223 x10^3/uL (140-400) Neutrophils (%) (Auto) 59 % (31-73) 59 % (31-73) Lymphocytes (%) (Auto) 25 % (24-48) 22 % (24-48) Monocytes (%) (Auto) 11 % (0-9) 11 % (0-9) Eosinophils (%) (Auto) 4 % (0-3) 7 % (0-3) Basophils (%) (Auto) 1 % (0-3) 1 % (0-3) Neutrophils # (Auto) 3.0 x10^3/uL (1.8-7.7) 3.2 x10^3/uL (1.8-7.7) Lymphocytes # (Auto) 1.3 x10^3/uL (1.0-4.8) 1.2 x10^3/uL (1.0-4.8) Monocytes # (Auto) 0.6 x10^3/uL (0.0-1.1) 0.6 x10^3/uL (0.0-1.1) Eosinophils # (Auto) 0.2 x10^3/uL (0.0-0.7) 0.4 x10^3/uL (0.0-0.7) Basophils # (Auto) 0.0 x10^3/uL (0.0-0.2) 0.1 x10^3/uL (0.0-0.2) Prothrombin Time 12.5 SEC (11.7-14.0) Prothromb Time International Ratio 1.0 (0.8-1.1) Sodium Level 141 mmol/L (136-145) 142 mmol/L (136-145) Potassium Level 4.3 mmol/L (3.5-5.1) 4.3 mmol/L (3.5-5.1) Chloride Level 104 mmol/L (98-107) 107 mmol/L (98-107) Carbon Dioxide Level 30 mmol/L (21-32) 29 mmol/L (21-32) Anion Gap 7 (6-14) 6 (6-14) Blood Urea Nitrogen 10 mg/dL (7-20) 14 mg/dL (7-20) Creatinine 0.8 mg/dL (0.6-1.0) 0.8 mg/dL (0.6-1.0) Estimated GFR (Cockcroft-Gault) 69.2 69.2 BUN/Creatinine Ratio 13 (6-20) 18 (6-20) Glucose Level 108 mg/dL (70-99) 112 mg/dL (70-99) Calcium Level 10.7 mg/dL (8.5-10.1) 10.2 mg/dL (8.5-10.1) Total Bilirubin 0.5 mg/dL (0.2-1.0) 0.4 mg/dL (0.2-1.0) Aspartate Amino Transf (AST/SGOT) 41 U/L (15-37) 41 U/L (15-37) Alanine Aminotransferase (ALT/SGPT) 52 U/L (14-59) 64 U/L (14-59) Alkaline Phosphatase 55 U/L (46-116) 42 U/L (46-116) Total Protein 7.4 g/dL (6.4-8.2) 6.1 g/dL (6.4-8.2) Albumin 3.7 g/dL (3.4-5.0) 3.3 g/dL (3.4-5.0) Albumin/Globulin Ratio 1.0 (1.0-1.7) 1.2 (1.0-1.7) Triglycerides Level 147 mg/dL (0-150) Cholesterol Level 188 mg/dL (0-200) LDL Cholesterol, Calculated 117 mg/dL (0-100) VLDL Cholesterol, Calculated 29 mg/dL (0-40) Non-HDL Cholesterol Calculated 146 mg/dL (0-129) HDL Cholesterol 42 mg/dL (40-60) Cholesterol/HDL Ratio 4.5 Urine Collection Type Unknown Urine Color Yellow Urine Clarity Clear Urine pH 5.5 Urine Specific [place] 1.020 Urine Protein Negative mg/dL (NEG-TRACE) Urine Glucose (UA) Negative mg/dL (NEG) Urine Ketones (Stick) Negative mg/dL (NEG) Urine Blood Negative (NEG) Urine Nitrite Negative (NEG) Urine Bilirubin Negative (NEG) Urine Urobilinogen Dipstick 1.0 mg/dL (0.2 mg/dL) Urine Leukocyte Esterase Moderate (NEG) Urine RBC 0 /HPF (0-2) Urine WBC 5-10 /HPF (0-4) Urine Squamous Epithelial Cells Mod /LPF Urine Bacteria Moderate /HPF (0-FEW) Urine Mucus Mod /LPF Urine Opiates Screen Neg (NEG) Urine Methadone Screen Neg (NEG) Urine Barbiturates Neg (NEG) Urine Phencyclidine Screen Neg (NEG) Urine Amphetamine/Methamphetamine Neg (NEG) Urine Benzodiazepines Screen Neg (NEG) Urine Cocaine Screen Neg (NEG) Urine Cannabinoids Screen Neg (NEG) Urine Ethyl Alcohol Neg (NEG) Laboratory Tests Test 04/09/19 06:05 04/09/19 11:30 White Blood Count 5.5 x10^3/uL (4.0-11.0) Red Blood Count 4.61 x10^6/uL (3.50-5.40) Hemoglobin 14.5 g/dL (12.0-15.5) Hematocrit 42.9 % (36.0-47.0) Mean Corpuscular Volume 93 fL (79-100) Mean Corpuscular Hemoglobin 32 pg (25-35) Mean Corpuscular Hemoglobin Concent 34 g/dL (31-37) Red Cell Distribution Width 14.2 % (11.5-14.5) Platelet Count 223 x10^3/uL (140-400) Neutrophils (%) (Auto) 59 % (31-73) Lymphocytes (%) (Auto) 22 % (24-48) Monocytes (%) (Auto) 11 % (0-9) Eosinophils (%) (Auto) 7 % (0-3) Basophils (%) (Auto) 1 % (0-3) Neutrophils # (Auto) 3.2 x10^3/uL (1.8-7.7) Lymphocytes # (Auto) 1.2 x10^3/uL (1.0-4.8) Monocytes # (Auto) 0.6 x10^3/uL (0.0-1.1) Eosinophils # (Auto) 0.4 x10^3/uL (0.0-0.7) Basophils # (Auto) 0.1 x10^3/uL (0.0-0.2) Sodium Level 142 mmol/L (136-145) Potassium Level 4.3 mmol/L (3.5-5.1) Chloride Level 107 mmol/L (98-107) Carbon Dioxide Level 29 mmol/L (21-32) Anion Gap 6 (6-14) Blood Urea Nitrogen 14 mg/dL (7-20) Creatinine 0.8 mg/dL (0.6-1.0) Estimated GFR (Cockcroft-Gault) 69.2 BUN/Creatinine Ratio 18 (6-20) Glucose Level 112 mg/dL (70-99) Calcium Level 10.2 mg/dL (8.5-10.1) Total Bilirubin 0.4 mg/dL (0.2-1.0) Aspartate Amino Transf (AST/SGOT) 41 U/L (15-37) Alanine Aminotransferase (ALT/SGPT) 64 U/L (14-59) Alkaline Phosphatase 42 U/L (46-116) Total Protein 6.1 g/dL (6.4-8.2) Albumin 3.3 g/dL (3.4-5.0) Albumin/Globulin Ratio 1.2 (1.0-1.7) Triglycerides Level 147 mg/dL (0-150) Cholesterol Level 188 mg/dL (0-200) LDL Cholesterol, Calculated 117 mg/dL (0-100) VLDL Cholesterol, Calculated 29 mg/dL (0-40) Non-HDL Cholesterol Calculated 146 mg/dL (0-129) HDL Cholesterol 42 mg/dL (40-60) Cholesterol/HDL Ratio 4.5 Urine Collection Type Unknown Urine Color Yellow Urine Clarity Clear Urine pH 5.5 Urine Specific [place] 1.020 Urine Protein Negative mg/dL (NEG-TRACE) Urine Glucose (UA) Negative mg/dL (NEG) Urine Ketones (Stick) Negative mg/dL (NEG) Urine Blood Negative (NEG) Urine Nitrite Negative (NEG) Urine Bilirubin Negative (NEG) Urine Urobilinogen Dipstick 1.0 mg/dL (0.2 mg/dL) Urine Leukocyte Esterase Moderate (NEG) Urine RBC 0 /HPF (0-2) Urine WBC 5-10 /HPF (0-4) Urine Squamous Epithelial Cells Mod /LPF Urine Bacteria Moderate /HPF (0-FEW) Urine Mucus Mod /LPF Urine Opiates Screen Neg (NEG) Urine Methadone Screen Neg (NEG) Urine Barbiturates Neg (NEG) Urine Phencyclidine Screen Neg (NEG) Urine Amphetamine/Methamphetamine Neg (NEG) Urine Benzodiazepines Screen Neg (NEG) Urine Cocaine Screen Neg (NEG) Urine Cannabinoids Screen Neg (NEG) Urine Ethyl Alcohol Neg (NEG) NAHID CLIFFORD MD Apr 09, 2019 16:25
--- NOTE | 2019-04-09 16:29 | PDOC ---
PROGRESS NOTES Assessment Assessment Acute 4 mm left frontal lobe infarct. Word finding difficulties on 04/07/19. 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 HTN. HLD. Obesity. RECOMMENDATIONS/PLAN: ASA 325 mg daily. Lipitor HS. Treat medical diseases. Weight reduction. FU with PCP. FU with Neurology in 1 month. Discussed with her son at bedside on 04/09/19. HISTORY OF THE PRESENT ILLNESS: This is a 79-y-old female patient with above medical diseases developed symptoms of word finding difficulties and speech problems around 5:00 pm on 04/07/19. Her symptom lasted to 2:00 am then resolved. Denied sensory or motor deficits. She came to the ER of [facility] on 04/08/19 for further evaluation. Neurology was requested for consultation for TIA. She was revealed a small acute infarct. Past Medical History Remote facial trauma with hx neurological damage Cardiovascular: Hyperlipidemia GI: GERD Family History High Cholestrol PAST SURGERY HISTORY: No major surgery recently. ALLERGY: NKDA Unknown MEDICATIONS: Refer to [facility] SOCIAL HISTORY: Lives at home. Denies smoking, drinking, and illicit drug use. REVIEW OF SYSTEMS: Constitutional: Obesity. Head: No traumatic brain or head injury. Skin: No edema, or rash. Ear: No infection. Eyes: No vision loss or color blindness. Nose: No bleeding or purulent discharges. Hearing: No hearing decrease. Neck: No injury. Breast: No history of cancer, masses,or discharges. Cardiac: HTN, HLD. Pulmonary: No COPD. GI: No GI ulcer, GI bleeding. Urinary/genital: UTI. Endocrinologic: Obesity. Skeletomuscular: No muscular atrophy, deformity. Neurological: see HP. Psychiatric: Denies drug use/abuse. Otherwise, not [id number] review of systems. PHYSICAL EXAMINATION: General appearance is in no acute distress. HEENT: Normocephalic and nontraumatic. Eyes, nose, ears, and throat are unremarkable. Neck is supple. No lymphadenopathy. No bruits are heard over the carotid artery. No crepitus. Cardiovascular: S1, S2, regular rate and rhythm. Pulmonary: Clear to auscultation bilaterally. Abdomen: Bowel sounds are positive. Abdomen is soft, nontender, and nondistended. Extremities: No rash, lesions, or edema. No restriction of range of motion NEUROLOGICAL EXAMINATION: Alert Oriented to time, place and person. PERRL. EOMI. CN: no focal findings. Muscle tone: within normal. Muscle strength: 5 DTR: 2 Plantar reflex: Flexor/Neutral response bilaterally Gait: At her baseline normal. Sensory exam: no abnormal findings. No cerebellar signs elicited. F-T-N test accurate. Objective Objective Vital Signs Date Time Temp Pulse Resp B/P (MAP) Pulse Ox O2 Delivery O2 Flow Rate FiO2 04/09/19 15:02 97.4 82 18 122/87 (99) 97 Room Air 97.4 Intake and Output 04/09/19 07:00 Intake Total 400 ml Balance 400 ml Intake Oral 400 ml # Voids 4 Vitals Signs Vitals VS - Last 72 Hours, by Label Date Time Temp Pulse Resp B/P (MAP) Pulse Ox O2 Delivery O2 Flow Rate FiO2 04/09/19 15:02 97.4 82 18 122/87 (99) 97 Room Air 97.4 04/09/19 14:44 72 143/86 04/09/19 11:16 97.7 72 18 143/86 (105) 96 Room Air 97.7 04/09/19 10:55 55 136/56 04/09/19 08:00 Room Air 04/09/19 07:32 98.1 55 18 136/56 (82) 97 Room Air 98.1 04/09/19 03:08 98.3 60 16 122/63 (82) 96 Room Air 98.3 04/08/19 23:35 98.3 67 16 115/53 (73) 98 Room Air 98.3 04/08/19 21:22 128/82 04/08/19 20:44 96 Room Air 04/08/19 20:00 Room Air 04/08/19 19:56 97.8 86 16 128/82 (97) 97 Room Air 97.8 04/08/19 17:19 86 147/89 04/08/19 15:00 98.2 86 18 147/89 (108) 94 Room Air 98.2 04/08/19 11:00 98.2 86 18 145/84 (104) 96 Room Air 98.2 04/08/19 08:38 Room Air 04/08/19 07:00 98.8 90 18 157/90 (112) 91 Room Air 98.8 Laboratory Laboratory Laboratory Tests Test 04/09/19 06:05 04/09/19 11:30 White Blood Count 5.5 x10^3/uL (4.0-11.0) Red Blood Count 4.61 x10^6/uL (3.50-5.40) Hemoglobin 14.5 g/dL (12.0-15.5) Hematocrit 42.9 % (36.0-47.0) Mean Corpuscular Volume 93 fL (79-100) Mean Corpuscular Hemoglobin 32 pg (25-35) Mean Corpuscular Hemoglobin Concent 34 g/dL (31-37) Red Cell Distribution Width 14.2 % (11.5-14.5) Platelet Count 223 x10^3/uL (140-400) Neutrophils (%) (Auto) 59 % (31-73) Lymphocytes (%) (Auto) 22 % (24-48) Monocytes (%) (Auto) 11 % (0-9) Eosinophils (%) (Auto) 7 % (0-3) Basophils (%) (Auto) 1 % (0-3) Neutrophils # (Auto) 3.2 x10^3/uL (1.8-7.7) Lymphocytes # (Auto) 1.2 x10^3/uL (1.0-4.8) Monocytes # (Auto) 0.6 x10^3/uL (0.0-1.1) Eosinophils # (Auto) 0.4 x10^3/uL (0.0-0.7) Basophils # (Auto) 0.1 x10^3/uL (0.0-0.2) Sodium Level 142 mmol/L (136-145) Potassium Level 4.3 mmol/L (3.5-5.1) Chloride Level 107 mmol/L (98-107) Carbon Dioxide Level 29 mmol/L (21-32) Anion Gap 6 (6-14) Blood Urea Nitrogen 14 mg/dL (7-20) Creatinine 0.8 mg/dL (0.6-1.0) Estimated GFR (Cockcroft-Gault) 69.2 BUN/Creatinine Ratio 18 (6-20) Glucose Level 112 mg/dL (70-99) Calcium Level 10.2 mg/dL (8.5-10.1) Total Bilirubin 0.4 mg/dL (0.2-1.0) Aspartate Amino Transf (AST/SGOT) 41 U/L (15-37) Alanine Aminotransferase (ALT/SGPT) 64 U/L (14-59) Alkaline Phosphatase 42 U/L (46-116) Total Protein 6.1 g/dL (6.4-8.2) Albumin 3.3 g/dL (3.4-5.0) Albumin/Globulin Ratio 1.2 (1.0-1.7) Triglycerides Level 147 mg/dL (0-150) Cholesterol Level 188 mg/dL (0-200) LDL Cholesterol, Calculated 117 mg/dL (0-100) VLDL Cholesterol, Calculated 29 mg/dL (0-40) Non-HDL Cholesterol Calculated 146 mg/dL (0-129) HDL Cholesterol 42 mg/dL (40-60) Cholesterol/HDL Ratio 4.5 Urine Collection Type Unknown Urine Color Yellow Urine Clarity Clear Urine pH 5.5 Urine Specific [place] 1.020 Urine Protein Negative mg/dL (NEG-TRACE) Urine Glucose (UA) Negative mg/dL (NEG) Urine Ketones (Stick) Negative mg/dL (NEG) Urine Blood Negative (NEG) Urine Nitrite Negative (NEG) Urine Bilirubin Negative (NEG) Urine Urobilinogen Dipstick 1.0 mg/dL (0.2 mg/dL) Urine Leukocyte Esterase Moderate (NEG) Urine RBC 0 /HPF (0-2) Urine WBC 5-10 /HPF (0-4) Urine Squamous Epithelial Cells Mod /LPF Urine Bacteria Moderate /HPF (0-FEW) Urine Mucus Mod /LPF Urine Opiates Screen Neg (NEG) Urine Methadone Screen Neg (NEG) Urine Barbiturates Neg (NEG) Urine Phencyclidine Screen Neg (NEG) Urine Amphetamine/Methamphetamine Neg (NEG) Urine Benzodiazepines Screen Neg (NEG) Urine Cocaine Screen Neg (NEG) Urine Cannabinoids Screen Neg (NEG) Urine Ethyl Alcohol Neg (NEG) Medication Medications Current Medications Artificial Tears (Artificial Tears) 1 drop TID OU Last administered on 04/09/19at 14:00; Start 04/08/19 at 21:00 Aspirin (Sheela Aspirin) 325 mg DAILYWBKFT PO ; Start 04/10/19 at 08:00 Enoxaparin Sodium (Lovenox 40mg Syringe) 40 mg DAILY SQ Last administered on 04/09/19at 10:56; Start 04/09/19 at 09:00 Hydrochlorothiazide (Microzide) 12.5 mg DAILY PO Last administered on 04/09/19at 10:54; Start 04/08/19 at 16:30 Hyoscyamine (Anaspaz) 0.125 mg DAILY PO ; Start 04/08/19 at 16:30; Stop 04/08/19 at 16:03; Status DC Hyoscyamine (Anaspaz) 0.125 mg PRN QID PRN PO STOMACH CRAMPING; Start 04/08/19 at 16:30 Lisinopril (Prinivil) 20 mg DAILY PO Last administered on 04/09/19at 10:55; Start 04/08/19 at 16:30 Magnesium Hydroxide (Milk Of Magnesia) 2,400 mg 1X ONCE PO Last administered on 04/09/19 11:36; Start 04/09/19 at 11:30; Stop 04/09/19 at 11:31; Status DC Metoprolol Tartrate (Lopressor) 50 mg BID PO Last administered on 04/09/19at 14:44; Start 04/08/19 at 21:00 Non-Formulary Medication (Bacitracin ) 1 edvin TID RIGHTEYE ; Start 04/08/19 at 21:00; Status UNV Pantoprazole Sodium (Protonix) 40 mg DAILYAC PO Last administered on 04/09/19 10:54; Start 04/08/19 at 16:30 Simvastatin (Zocor) 40 mg HS PO Last administered on 04/08/19at 21:21; Start 04/08/19 at 21:00 Comment Review of Relevant I have reviewed the following items mary (where applicable) has been applied. NAHID CLIFFORD MD Apr 09, 2019 16:29
[2019-04-09 19:20] VITALS: BP 141/75
[2019-04-09] MEDS: SIMVASTATIN 40 MG TABLET. PO SCH (21:08)
[2019-04-09 23:47] VITALS: BP 105/63
[2019-04-10 03:36] VITALS: BP 116/60
[2019-04-10] MEDS: LEVOTHYROXINE 75 MCG TABLET PO SCH (06:11)
[2019-04-10] MEDS: PANTOPRAZOLE 40 MG TABLET.DR. PO SCH (06:11)
[2019-04-10] MEDS ORDERED: ASPIRIN 325 MG TABLET PO SCH (08:00)
[2019-04-10] MEDS: METOPROLOL TART IMMED RELEASE 50 MG TABLET. PO SCH (08:27)
[2019-04-10] MEDS: LISINOPRIL 20 MG TABLET PO SCH (08:28)
[2019-04-10] MEDS: hydroCHLOROthiazide 12.5 MG CAPSULE PO SCH (08:28)
[2019-04-10] MEDS: ENOXAPARIN 40 MG/0.4 ML SYRINGE. SQ SCH (08:28)
[2019-04-10 08:45] VITALS: BP 140/78
[2019-04-10] MEDS: POLYVINYL ALCOHOL 1.4% OPHTH SOLUTION 15ML BOTTLE. OU SCH ×2 (09:00→14:00)
--- NOTE | 2019-04-10 11:04 | PDOC ---
PROGRESS NOTES History of Present Illness History of Present Illness VTE Prophylaxis Ordered VTE Prophylaxis Devices: Yes VTE Pharmacological Prophylaxi: Yes discharge dx Assessment/Plan IMPRESSION 1. Acute CVA left FRONTAL LOBE on mri 4 mm focal area of acute ischemia/infarction is seen involving the left frontal lobe. There is no significant surrounding edema or associated mass effect. 2. 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 MORBID OBESITY 4. No Doppler evidence of hemodynamically significant stenosis within the carotid or vertebral arteries. 04/08 5. HYPERTENSION 6. GERD 7. mild hypercalcemia, BETTER 04/09 8. Injection of bubbles documented no interatrial shunt. ON ECHO plan admit INR MRI HEAD 6 south TELE echo neurochecks q 4 hrs PT/OT/ST Neurology consult doppler carotids OK statin ASA DVT PROPHYLAXIS HOME MEDS AVOID ESTROGEN supplement due to increased risk of thrombosis FOLLOW ca level ASA 325 mg daily. Lipitor HS. Weight reduction. FU with PCP. FU with Neurology in 1 month. Discussed with her son at bedside on 04/10/19. 04/09 D/W SON IN ROOM 37 MIN PT EXAM, CHART REVIEW d/c planning , > 50% OF TIME SPENT WITH EXAM, CHART REVIEW, PT CARE COORDINATION Vitals Vitals Vital Signs Date Time Temp Pulse Resp B/P (MAP) Pulse Ox O2 Delivery O2 Flow Rate FiO2 04/10/19 08:45 98.0 69 16 140/78 (98) 91 Room Air 98.0 Physical Exam Physical Exam Physical Exam General: Alert, Oriented X3, Cooperative, No acute distress HEENT: Atraumatic, PERRLA, EOMI, Mucous membr. moist/pink Lungs: Clear to auscultation, Normal air movement Heart: S1S2, RRR, no thrills Cardiovascular: S1, S2 Breasts: Not examined Abdomen: Normal bowel sounds, Soft Rectal Exam: not examined Extremities: No cyanosis Skin: No significant lesion Neuro: Normal speech, Cranial nerves 3-12 NL Psych/Mental Status: Mental status NL, Mood NL General: Alert, Oriented X3, Cooperative, No acute distress Lungs: Clear Abdomen: Normal bowel sounds, Soft Extremities: No clubbing, No cyanosis, No edema Skin: No significant lesion Labs LABS MRI of the brain without contrast 04/09/2019 Clinical History: Word finding difficulty. Technique: Unenhanced T1-weighted sagittal and axial, T2-weighted axial and coronal and FLAIR, gradient echo and diffusion-weighted axial images of the brain were obtained. Findings: Comparison is made to patient's CT scan of the head dated 04/07/2019. There is generalized parenchymal atrophy. Patchy, confluent and multiple focal areas of increased signal intensity are seen within the periventricular and subcortical white matter of both cerebral hemispheres on the FLAIR and T2-weighted images consistent with areas of fairly extensive small vessel ischemic disease. A 4 mm focal area of restricted diffusion is seen involving the cortex of the left frontal lobe, superiorly. This is consistent with an area of acute ischemia/infarction. There is no surrounding edema or associated mass effect. No additional acute parenchymal abnormality is seen. No extra-axial fluid collection is noted. Mild mucosal thickening in seen scattered throughout the paranasal sinuses. There are small bilateral mastoid effusions. Normal flow voids are seen within the major vascular structures surrounding the brain parenchyma. Impression: 4 mm focal area of acute ischemia/infarction is seen involving the left frontal lobe. There is no significant surrounding edema or associated mass effect. The patient's nurse was notified of this finding. Electronically signed by: Mehran Landers MD (04/09/2019 12:10 PM) [facility] DICTATED and SIGNED BY: MEHRAN LANDERS MD DATE: 04/09/19 1210 Laboratory Tests Test 04/09/19 11:30 Urine Collection Type Unknown Urine Color Yellow Urine Clarity Clear Urine pH 5.5 Urine Specific [place] 1.020 Urine Protein Negative mg/dL (NEG-TRACE) Urine Glucose (UA) Negative mg/dL (NEG) Urine Ketones (Stick) Negative mg/dL (NEG) Urine Blood Negative (NEG) Urine Nitrite Negative (NEG) Urine Bilirubin Negative (NEG) Urine Urobilinogen Dipstick 1.0 mg/dL (0.2 mg/dL) Urine Leukocyte Esterase Moderate (NEG) Urine RBC 0 /HPF (0-2) Urine WBC 5-10 /HPF (0-4) Urine Squamous Epithelial Cells Mod /LPF Urine Bacteria Moderate /HPF (0-FEW) Urine Mucus Mod /LPF Urine Opiates Screen Neg (NEG) Urine Methadone Screen Neg (NEG) Urine Barbiturates Neg (NEG) Urine Phencyclidine Screen Neg (NEG) Urine Amphetamine/Methamphetamine Neg (NEG) Urine Benzodiazepines Screen Neg (NEG) Urine Cocaine Screen Neg (NEG) Urine Cannabinoids Screen Neg (NEG) Urine Ethyl Alcohol Neg (NEG) Comment Review of Relevant I have reviewed the following items mary (where applicable) has been applied. Labs Laboratory Tests Test 04/08/19 11:05 04/09/19 06:05 04/09/19 11:30 White Blood Count 5.2 x10^3/uL (4.0-11.0) 5.5 x10^3/uL (4.0-11.0) Red Blood Count 4.88 x10^6/uL (3.50-5.40) 4.61 x10^6/uL (3.50-5.40) Hemoglobin 15.6 g/dL (12.0-15.5) 14.5 g/dL (12.0-15.5) Hematocrit 45.4 % (36.0-47.0) 42.9 % (36.0-47.0) Mean Corpuscular Volume 93 fL (79-100) 93 fL (79-100) Mean Corpuscular Hemoglobin 32 pg (25-35) 32 pg (25-35) Mean Corpuscular Hemoglobin Concent 34 g/dL (31-37) 34 g/dL (31-37) Red Cell Distribution Width 13.7 % (11.5-14.5) 14.2 % (11.5-14.5) Platelet Count 248 x10^3/uL (140-400) 223 x10^3/uL (140-400) Neutrophils (%) (Auto) 59 % (31-73) 59 % (31-73) Lymphocytes (%) (Auto) 25 % (24-48) 22 % (24-48) Monocytes (%) (Auto) 11 % (0-9) 11 % (0-9) Eosinophils (%) (Auto) 4 % (0-3) 7 % (0-3) Basophils (%) (Auto) 1 % (0-3) 1 % (0-3) Neutrophils # (Auto) 3.0 x10^3/uL (1.8-7.7) 3.2 x10^3/uL (1.8-7.7) Lymphocytes # (Auto) 1.3 x10^3/uL (1.0-4.8) 1.2 x10^3/uL (1.0-4.8) Monocytes # (Auto) 0.6 x10^3/uL (0.0-1.1) 0.6 x10^3/uL (0.0-1.1) Eosinophils # (Auto) 0.2 x10^3/uL (0.0-0.7) 0.4 x10^3/uL (0.0-0.7) Basophils # (Auto) 0.0 x10^3/uL (0.0-0.2) 0.1 x10^3/uL (0.0-0.2) Prothrombin Time 12.5 SEC (11.7-14.0) Prothromb Time International Ratio 1.0 (0.8-1.1) Sodium Level 141 mmol/L (136-145) 142 mmol/L (136-145) Potassium Level 4.3 mmol/L (3.5-5.1) 4.3 mmol/L (3.5-5.1) Chloride Level 104 mmol/L (98-107) 107 mmol/L (98-107) Carbon Dioxide Level 30 mmol/L (21-32) 29 mmol/L (21-32) Anion Gap 7 (6-14) 6 (6-14) Blood Urea Nitrogen 10 mg/dL (7-20) 14 mg/dL (7-20) Creatinine 0.8 mg/dL (0.6-1.0) 0.8 mg/dL (0.6-1.0) Estimated GFR (Cockcroft-Gault) 69.2 69.2 BUN/Creatinine Ratio 13 (6-20) 18 (6-20) Glucose Level 108 mg/dL (70-99) 112 mg/dL (70-99) Calcium Level 10.7 mg/dL (8.5-10.1) 10.2 mg/dL (8.5-10.1) Total Bilirubin 0.5 mg/dL (0.2-1.0) 0.4 mg/dL (0.2-1.0) Aspartate Amino Transf (AST/SGOT) 41 U/L (15-37) 41 U/L (15-37) Alanine Aminotransferase (ALT/SGPT) 52 U/L (14-59) 64 U/L (14-59) Alkaline Phosphatase 55 U/L (46-116) 42 U/L (46-116) Total Protein 7.4 g/dL (6.4-8.2) 6.1 g/dL (6.4-8.2) Albumin 3.7 g/dL (3.4-5.0) 3.3 g/dL (3.4-5.0) Albumin/Globulin Ratio 1.0 (1.0-1.7) 1.2 (1.0-1.7) Triglycerides Level 147 mg/dL (0-150) Cholesterol Level 188 mg/dL (0-200) LDL Cholesterol, Calculated 117 mg/dL (0-100) VLDL Cholesterol, Calculated 29 mg/dL (0-40) Non-HDL Cholesterol Calculated 146 mg/dL (0-129) HDL Cholesterol 42 mg/dL (40-60) Cholesterol/HDL Ratio 4.5 Urine Collection Type Unknown Urine Color Yellow Urine Clarity Clear Urine pH 5.5 Urine Specific [place] 1.020 Urine Protein Negative mg/dL (NEG-TRACE) Urine Glucose (UA) Negative mg/dL (NEG) Urine Ketones (Stick) Negative mg/dL (NEG) Urine Blood Negative (NEG) Urine Nitrite Negative (NEG) Urine Bilirubin Negative (NEG) Urine Urobilinogen Dipstick 1.0 mg/dL (0.2 mg/dL) Urine Leukocyte Esterase Moderate (NEG) Urine RBC 0 /HPF (0-2) Urine WBC 5-10 /HPF (0-4) Urine Squamous Epithelial Cells Mod /LPF Urine Bacteria Moderate /HPF (0-FEW) Urine Mucus Mod /LPF Urine Opiates Screen Neg (NEG) Urine Methadone Screen Neg (NEG) Urine Barbiturates Neg (NEG) Urine Phencyclidine Screen Neg (NEG) Urine Amphetamine/Methamphetamine Neg (NEG) Urine Benzodiazepines Screen Neg (NEG) Urine Cocaine Screen Neg (NEG) Urine Cannabinoids Screen Neg (NEG) Urine Ethyl Alcohol Neg (NEG) Laboratory Tests Test 04/09/19 11:30 Urine Collection Type Unknown Urine Color Yellow Urine Clarity Clear Urine pH 5.5 Urine Specific [place] 1.020 Urine Protein Negative mg/dL (NEG-TRACE) Urine Glucose (UA) Negative mg/dL (NEG) Urine Ketones (Stick) Negative mg/dL (NEG) Urine Blood Negative (NEG) Urine Nitrite Negative (NEG) Urine Bilirubin Negative (NEG) Urine Urobilinogen Dipstick 1.0 mg/dL (0.2 mg/dL) Urine Leukocyte Esterase Moderate (NEG) Urine RBC 0 /HPF (0-2) Urine WBC 5-10 /HPF (0-4) Urine Squamous Epithelial Cells Mod /LPF Urine Bacteria Moderate /HPF (0-FEW) Urine Mucus Mod /LPF Urine Opiates Screen Neg (NEG) Urine Methadone Screen Neg (NEG) Urine Barbiturates Neg (NEG) Urine Phencyclidine Screen Neg (NEG) Urine Amphetamine/Methamphetamine Neg (NEG) Urine Benzodiazepines Screen Neg (NEG) Urine Cocaine Screen Neg (NEG) Urine Cannabinoids Screen Neg (NEG) Urine Ethyl Alcohol Neg (NEG) Microbiology 04/08/19 Blood Culture - Preliminary, Resulted NO GROWTH AFTER 1 DAY Medications Current Medications Influenza Virus Vaccine Quadrival (Afluria Quad 2019-20 (3yr Up) Syringe) 0.5 ml ONCE ONCE VAX IM Last administered on 04/08/19at 17:21; Start 04/08/19 at 11:00; Stop 04/08/19 at 11:01; Status DC Aspirin (Children'S Aspirin) 81 mg DAILYWBKFT PO Last administered on 04/09/19at 10:54; Start 04/08/19 at 11:00; Stop 04/09/19 at 14:24; Status DC Metoprolol Tartrate (Lopressor) 50 mg BID PO Last administered on 04/10/19at 08:27; Start 04/08/19 at 21:00 Simvastatin (Zocor) 40 mg HS PO Last administered on 04/09/19at 21:08; Start 04/08/19 at 21:00 Non-Formulary Medication (Bacitracin ) 1 edvin TID RIGHTEYE ; Start 04/08/19 at 21:00; Status UNV Hyoscyamine (Anaspaz) 0.125 mg DAILY PO ; Start 04/08/19 at 16:30; Stop 04/08/19 at 16:03; Status DC Lisinopril (Prinivil) 20 mg DAILY PO Last administered on 04/10/19at 08:28; Start 04/08/19 at 16:30 Pantoprazole Sodium (Protonix) 40 mg DAILYAC PO Last administered on 04/10/19at 06:11; Start 04/08/19 at 16:30 Ondansetron HCl (Zofran Odt) 4 mg PRN Q6HRS PRN PO NAUSEA; Start 04/08/19 at 16:00 Artificial Tears (Artificial Tears) 1 drop TID OU Last administered on 04/10/19at 09:00; Start 04/08/19 at 21:00 Levothyroxine Sodium (Synthroid) 75 mcg DAILY06 PO Last administered on at 06:11; Start 04/08/19 at 16:00 Hydralazine HCl (Apresoline Inj) 10 mg PRN Q4HRS PRN IVP ELEVATED BP, SEE COMMENTS; Start 04/08/19 at 16:00 Hydrochlorothiazide (Microzide) 12.5 mg DAILY PO Last administered on 04/10/19at 08:28; Start 04/08/19 at 16:30 Sodium Chloride (Normal Saline Flush) 3 ml QSHIFT PRN IV AFTER MEDS AND BLOOD DRAWS; Start 04/08/19 at 16:00 Ondansetron HCl (Zofran) 4 mg PRN Q4HRS PRN IVP NAUSEA/VOMITING; Start 04/08/19 at 16:00 Acetaminophen (Tylenol) 650 mg PRN Q4HRS PRN PO TEMP OVER 100.4F OR MILD PAIN; Start 04/08/19 at 16:00 Al Hydroxide/Mg Hydroxide (Mylanta Plus Xs) 30 ml PRN DAILY PRN PO HEARTBURN / GAS; Start 04/08/19 at 16:00 Clonidine HCl (Catapres) 0.1 mg PRN Q6HRS PRN PO SBP>160 OR DBP>90; Start 04/08/19 at 16:00 Docusate Sodium (Colace) 100 mg PRN BID PRN PO CONSTIPATION; Start 04/08/19 at 16:00 Albuterol Sulfate (Ventolin Neb Soln) 2.5 mg PRN Q4HRS PRN NEB SHORTNESS OF BREATH; Start 04/08/19 at 16:00 Guaifenesin (Robitussin) 200 mg PRN Q4HRS PRN PO COUGH; Start 04/08/19 at 16:00 Enoxaparin Sodium (Lovenox 40mg Syringe) 40 mg DAILY SQ Last administered on 04/10/19at 08:28; Start 04/09/19 at 09:00 Hyoscyamine (Anaspaz) 0.125 mg PRN QID PRN PO STOMACH CRAMPING; Start 04/08/19 at 16:30 Magnesium Hydroxide (Milk Of Magnesia) 2,400 mg 1X ONCE PO Last administered on 04/09/19at 11:36; Start 04/09/19 at 11:30; Stop 04/09/19 at 11:31; Status DC Aspirin (Sheela Aspirin) 325 mg DAILYWBKFT PO Last administered on 04/10/19at 08:27; Start 04/10/19 at 08:00 Active Scripts Active Reported Eye Drop Tears (Peg 400/Hypromellose/Glycerin) 15 Ml Drops 15 Ml OP TID Lisinopril-Hctz 20-12.5 Mg Tab (Lisinopril/Hydrochlorothiazide) 1 Each Tablet 1 Tab PO DAILY Premarin (Estrogens, Conjugated) 0.45 Mg Tablet 1 Tab PO DAILY Simvastatin 40 Mg Tablet 1 Tab PO HS Ondansetron Hcl 4 Mg Tablet 1 Tab PO Q6HRS PRN Hyoscyamine Sulfate 0.125 Mg Tablet 1 Tab PO PRN QID PRN Omeprazole 20 Mg Capsule.dr 20 PO DAILY Levothyroxine Sodium 75 Mcg Tablet 75 PO DAILY Metoprolol Tartrate 50 Mg Tablet 1 Tab PO BID Vitals/I & O Vital Sign - Last 24 Hours 04/09/19 04/09/19 04/09/19 04/09/19 11:16 14:44 15:02 19:20 Temp 97.7 97.4 97.8 97.7 97.4 97.8 Pulse 72 72 82 67 Resp 18 18 20 B/P (MAP) 143/86 (105) 143/86 122/87 (99) 141/75 (97) Pulse Ox 96 97 94 O2 Delivery Room Air Room Air Room Air 04/09/19 04/09/19 04/09/19 04/10/19 20:00 21:08 23:47 03:36 Temp 97.8 97.5 97.8 97.5 Pulse 67 57 58 Resp 20 18 B/P (MAP) 141/75 105/63 (77) 116/60 (78) Pulse Ox 96 96 O2 Delivery Room Air Room Air Room Air 04/10/19 04/10/19 04/10/19 04/10/19 07:59 08:00 08:27 08:28 Pulse 58 58 B/P (MAP) 116/60 116/60 O2 Delivery Room Air Room Air 04/10/19 08:45 Temp 98.0 98.0 Pulse 69 Resp 16 B/P (MAP) 140/78 (98) Pulse Ox 91 O2 Delivery Room Air Intake and Output 04/09/19 04/09/19 04/10/19 15:00 23:00 07:00 Intake Total 400 ml 500 ml 800 ml Balance 400 ml [address] LOPEZ MD Apr 10, 2019 11:04
[2019-04-10 11:59] VITALS: BP_SYST 112; BP_SYST 134; BP_DIAS 43; BP_DIAS 70
--- NOTE | 2019-04-10 15:41 | PDOC3 ---
Discharge Summary Date of Admission: Apr 08, 2019 Date of Discharge: Apr 10, 2019 Follow-Up: 3-5 days Admitting Diagnosis comment: discharge dx Assessment/Plan IMPRESSION 1. Acute CVA left FRONTAL LOBE on mri 4 mm focal area of acute ischemia/infarction is seen involving the left frontal lobe. There is no significant surrounding edema or associated mass effect. 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 MORBID OBESITY 4. No Doppler evidence of hemodynamically significant stenosis within the carotid or vertebral arteries. 04/08 5. HYPERTENSION 6. GERD 7. mild hypercalcemia, BETTER 04/09 8. Injection of bubbles documented no interatrial shunt. ON ECHO plan admit INR MRI HEAD 6 south TELE echo neurochecks q 4 hrs PT/OT/ST Neurology consult doppler carotids OK statin ASA DVT PROPHYLAXIS HOME MEDS AVOID ESTROGEN supplement due to increased risk of thrombosis FOLLOW ca level ASA 325 mg daily. Lipitor HS. Weight reduction. FU with PCP. FU with Neurology in 1 month. Discussed with her son at bedside on 04/10/19. 04/09 D/W SON IN ROOM 37 MIN PT EXAM, CHART REVIEW d/c planning , > 50% OF TIME SPENT WITH EXAM, CHART REVIEW, PT CARE COORDINATION Vitals Vitals Vital Signs Date Time Temp Pulse Resp B/P (MAP) Pulse Ox O2 Delivery O2 Flow Rate FiO2 04/10/19 08:45 98.0 69 16 140/78 (98) 91 Room Air 98.0 Physical Exam Physical Exam Physical Exam General: Alert, Oriented X3, Cooperative, No acute distress HEENT: Atraumatic, PERRLA, EOMI, Mucous membr. moist/pink Lungs: Clear to auscultation, Normal air movement Heart: S1S2, RRR, no thrills Cardiovascular: S1, S2 Breasts: Not examined Abdomen: Normal bowel sounds, Soft Rectal Exam: not examined Extremities: No cyanosis Skin: No significant lesion Neuro: Normal speech, Cranial nerves 3-12 NL Psych/Mental Status: Mental status NL, Mood NL General: Alert, Oriented X3, Cooperative, No acute distress Lungs: Clear Abdomen: Normal bowel sounds, Soft Extremities: No clubbing, No cyanosis, No edema Skin: No significant lesion Labs LABS MRI of the brain without contrast 04/09/2019 Clinical History: Word finding difficulty. Technique: Unenhanced T1-weighted sagittal and axial, T2-weighted axial and coronal and FLAIR, gradient echo and diffusion-weighted axial images of the brain were obtained. Findings: Comparison is made to patient's CT scan of the head dated 04/07/2019. There is generalized parenchymal atrophy. Patchy, confluent and multiple focal areas of increased signal intensity are seen within the periventricular and subcortical white matter of both cerebral hemispheres on the FLAIR and T2-weighted images consistent with areas of fairly extensive small vessel ischemic disease. A 4 mm focal area of restricted diffusion is seen involving the cortex of the left frontal lobe, superiorly. This is consistent with an area of acute ischemia/infarction. There is no surrounding edema or associated mass effect. No additional acute parenchymal abnormality is seen. No extra-axial fluid collection is noted. Mild mucosal thickening in seen scattered throughout the paranasal sinuses. There are small bilateral mastoid effusions. Normal flow voids are seen within the major vascular structures surrounding the brain parenchyma. Impression: 4 mm focal area of acute ischemia/infarction is seen involving the left frontal lobe. There is no significant surrounding edema or associated mass effect. The patient's nurse was notified of this finding. Electronically signed by: Mehran Ramos MD (04/09/2019 12:10 PM) [facility] Brief Hospital Course Ms. Ortega is a 79 old [sex] who presented with [cva ] CONDITION AT DISCHARGE: Improved Discharge Medications Current Medications Influenza Virus Vaccine Quadrival (Afluria Quad 2019- (3yr Up) Syringe) 0.5 ml ONCE ONCE VAX IM Last administered on 04/08/19at 17:21; Start 04/08/19 at 11:00; Stop 04/08/19 at 11:01; Status DC Aspirin (Children'S Aspirin) 81 mg DAILYWBKFT PO Last administered on 04/09/19at 10:54; Start 04/08/19 at 11:00; Stop 04/09/19 at 14:24; Status DC Metoprolol Tartrate (Lopressor) 50 mg BID PO Last administered on 04/10/19at 08:27; Start 04/08/19 at 21:00 Simvastatin (Zocor) 40 mg HS PO Last administered on 04/09/19at 21:08; Start 04/08/19 at 21:00 Non-Formulary Medication (Bacitracin ) 1 edvin TID RIGHTEYE ; Start 04/08/19 at 21:00; Status UNV Hyoscyamine (Anaspaz) 0.125 mg DAILY PO ; Start 04/08/19 at 16:30; Stop 04/08/19 at 16:03; Status DC Lisinopril (Prinivil) 20 mg DAILY PO Last administered on 04/10/19 08:28; Start 04/08/19 at 16:30 Pantoprazole Sodium (Protonix) 40 mg DAILYAC PO Last administered on 04/10/19at 06:11; Start 04/08/19 at 16:30 Ondansetron HCl (Zofran Odt) 4 mg PRN Q6HRS PRN PO NAUSEA; Start 04/08/19 at 16:00 Artificial Tears (Artificial Tears) 1 drop TID OU Last administered on 04/10/19at 14:00; Start 04/08/19 at 21:00 Levothyroxine Sodium (Synthroid) 75 mcg DAILY06 PO Last administered on 04/10/19 06:11; Start 04/08/19 at 16:00 Hydralazine HCl (Apresoline Inj) 10 mg PRN Q4HRS PRN IVP ELEVATED BP, SEE COMMENTS; Start 04/08/19 at 16:00 Hydrochlorothiazide (Microzide) 12.5 mg DAILY PO Last administered on 04/10/19 08:28; Start 04/08/19 at 16:30 Sodium Chloride (Normal Saline Flush) 3 ml QSHIFT PRN IV AFTER MEDS AND BLOOD DRAWS; Start 04/08/19 at 16:00 Ondansetron HCl (Zofran) 4 mg PRN Q4HRS PRN IVP NAUSEA/VOMITING; Start 04/08/19 at 16:00 Acetaminophen (Tylenol) 650 mg PRN Q4HRS PRN PO TEMP OVER 100.4F OR MILD PAIN; Start 04/08/19 at 16:00 Al Hydroxide/Mg Hydroxide (Mylanta Plus Xs) 30 ml PRN DAILY PRN PO HEARTBURN / GAS; Start 04/08/19 at 16:00 Clonidine HCl (Catapres) 0.1 mg PRN Q6HRS PRN PO SBP>160 OR DBP>90; Start 04/08/19 at 16:00 Docusate Sodium (Colace) 100 mg PRN BID PRN PO CONSTIPATION; Start 04/08/19 at 16:00 Albuterol Sulfate (Ventolin Neb Soln) 2.5 mg PRN Q4HRS PRN NEB SHORTNESS OF BREATH; Start 04/08/19 at 16:00 Guaifenesin (Robitussin) 200 mg PRN Q4HRS PRN PO COUGH; Start 04/08/19 at 16:00 Enoxaparin Sodium (Lovenox 40mg Syringe) 40 mg DAILY SQ Last administered on 04/10/19at 08:28; Start 04/09/19 at 09:00 Hyoscyamine (Anaspaz) 0.125 mg PRN QID PRN PO STOMACH CRAMPING; Start 04/08/19 at 16:30 Magnesium Hydroxide (Milk Of Magnesia) 2,400 mg 1X ONCE PO Last administered on 04/09/19at 11:36; Start 04/09/19 at 11:30; Stop 04/09/19 at 11:31; Status DC Aspirin (bubl Aspirin) 325 mg DAILYWBKFT PO Last administered on 04/10/19at 08:27; Start 04/10/19 at 08:00 Active Scripts Active Reported Eye Drop Tears (Peg 400/Hypromellose/Glycerin) 15 Ml Drops 15 Ml OP TID Lisinopril-Hctz 20-12.5 Mg Tab (Lisinopril/Hydrochlorothiazide) 1 Each Tablet 1 Tab PO DAILY Premarin (Estrogens, Conjugated) 0.45 Mg Tablet 1 Tab PO DAILY Simvastatin 40 Mg Tablet 1 Tab PO HS Ondansetron Hcl 4 Mg Tablet 1 Tab PO Q6HRS PRN Hyoscyamine Sulfate 0.125 Mg Tablet 1 Tab PO PRN QID PRN Omeprazole 20 Mg Capsule.dr 20 PO DAILY Levothyroxine Sodium 75 Mcg Tablet 75 PO DAILY Metoprolol Tartrate 50 Mg Tablet 1 Tab PO BID Vital Signs Vital Signs Date Time Temp Pulse Resp B/P (MAP) Pulse Ox O2 Delivery O2 Flow Rate FiO2 04/10/19 11:59 98.0 79 18 112/70 (84) 93 Room Air 98.0 Labs Laboratory Tests Test 04/09/19 06:05 04/09/19 11:30 White Blood Count 5.5 x10^3/uL (4.0-11.0) Red Blood Count 4.61 x10^6/uL (3.50-5.40) Hemoglobin 14.5 g/dL (12.0-15.5) Hematocrit 42.9 % (36.0-47.0) Mean Corpuscular Volume 93 fL (79-100) Mean Corpuscular Hemoglobin 32 pg (25-35) Mean Corpuscular Hemoglobin Concent 34 g/dL (31-37) Red Cell Distribution Width 14.2 % (11.5-14.5) Platelet Count 223 x10^3/uL (140-400) Neutrophils (%) (Auto) 59 % (31-73) Lymphocytes (%) (Auto) 22 % (24-48) Monocytes (%) (Auto) 11 % (0-9) Eosinophils (%) (Auto) 7 % (0-3) Basophils (%) (Auto) 1 % (0-3) Neutrophils # (Auto) 3.2 x10^3/uL (1.8-7.7) Lymphocytes # (Auto) 1.2 x10^3/uL (1.0-4.8) Monocytes # (Auto) 0.6 x10^3/uL (0.0-1.1) Eosinophils # (Auto) 0.4 x10^3/uL (0.0-0.7) Basophils # (Auto) 0.1 x10^3/uL (0.0-0.2) Sodium Level 142 mmol/L (136-145) Potassium Level 4.3 mmol/L (3.5-5.1) Chloride Level 107 mmol/L (98-107) Carbon Dioxide Level 29 mmol/L (21-32) Anion Gap 6 (6-14) Blood Urea Nitrogen 14 mg/dL (7-20) Creatinine 0.8 mg/dL (0.6-1.0) Estimated GFR (Cockcroft-Gault) 69.2 BUN/Creatinine Ratio 18 (6-20) Glucose Level 112 mg/dL (70-99) Calcium Level 10.2 mg/dL (8.5-10.1) Total Bilirubin 0.4 mg/dL (0.2-1.0) Aspartate Amino Transf (AST/SGOT) 41 U/L (15-37) Alanine Aminotransferase (ALT/SGPT) 64 U/L (14-59) Alkaline Phosphatase 42 U/L (46-116) Total Protein 6.1 g/dL (6.4-8.2) Albumin 3.3 g/dL (3.4-5.0) Albumin/Globulin Ratio 1.2 (1.0-1.7) Triglycerides Level 147 mg/dL (0-150) Cholesterol Level 188 mg/dL (0-200) LDL Cholesterol, Calculated 117 mg/dL (0-100) VLDL Cholesterol, Calculated 29 mg/dL (0-40) Non-HDL Cholesterol Calculated 146 mg/dL (0-129) HDL Cholesterol 42 mg/dL (40-60) Cholesterol/HDL Ratio 4.5 Urine Collection Type Unknown Urine Color Yellow Urine Clarity Clear Urine pH 5.5 Urine Specific [place] 1.020 Urine Protein Negative mg/dL (NEG-TRACE) Urine Glucose (UA) Negative mg/dL (NEG) Urine Ketones (Stick) Negative mg/dL (NEG) Urine Blood Negative (NEG) Urine Nitrite Negative (NEG) Urine Bilirubin Negative (NEG) Urine Urobilinogen Dipstick 1.0 mg/dL (0.2 mg/dL) Urine Leukocyte Esterase Moderate (NEG) Urine RBC 0 /HPF (0-2) Urine WBC 5-10 /HPF (0-4) Urine Squamous Epithelial Cells Mod /LPF Urine Bacteria Moderate /HPF (0-FEW) Urine Mucus Mod /LPF Urine Opiates Screen Neg (NEG) Urine Methadone Screen Neg (NEG) Urine Barbiturates Neg (NEG) Urine Phencyclidine Screen Neg (NEG) Urine Amphetamine/Methamphetamine Neg (NEG) Urine Benzodiazepines Screen Neg (NEG) Urine Cocaine Screen Neg (NEG) Urine Cannabinoids Screen Neg (NEG) Urine Ethyl Alcohol Neg (NEG) Allergies Allergies Coded Allergies Type Severity Reaction Last Updated Verified No Known Drug Allergies 04/08/19 No Disposition/Orders: D/C to Home Patient Instructions d/c planning [address] LOPEZ MD Apr 10, 2019 15:41
[2019-04-10] MEDS ORDERED: ASPI325T8 PO (15:43)
[2019-04-10] MEDS ORDERED: DOCU-109 PO (15:43)
--- NOTE | 2019-04-10 15:44 | DISCH ---
DISCHARGE INSTRUCTIONS Condition on Discharge Condition on Discharge: Stable Activity After Discharge Activity Instructions for Disc: Resume previous activity Lifting Instructions after Dis: No heavy lifting, No pulling or pushing Driving Instructions after Dis: Do not drive Diet after Discharge Diet after Discharge: Cardiac Checks after Discharge Checks after discharge: Check blood press - daily Contacting the DR. after DC Call your doctor for: If your condition worsens LANE LOPEZ MD Apr 10, 2019 15:43
[2019-04-10 15:59] VITALS: BP 122/66
--- NOTE | 2019-04-10 16:14 | NUR ---
pt was discharged home with self care, gave her a script for aspirin and colace. she was wheeled down to the main entrance to be driven home by her spouse. Justino Moore RN
== END 2019-04-10 16:26 | disposition home or self-care (01) | DRG 66 ==
LOC: 6 SOUTH 02:45
PROVIDERS: ADMIT Internal Medicine; ATTEND Internal Medicine
DX: I63.9 Cerebral infarction, unspecified (principal); E78.5 Hyperlipidemia, unspecified; R47.01 Aphasia; K21.9 Gastro-esophageal reflux disease without esophagitis; I10 Essential (primary) hypertension; E83.52 Hypercalcemia; E66.01 Morbid (severe) obesity due to excess calories; Z68.37 Body mass index [BMI] 37.0-37.9, adult; Z79.82 Long term (current) use of aspirin; Z83.42 Family history of familial hypercholesterolemia
CPT/HCPCS: 36415; 70551; 80053; 80061; 80307; 81001; 85025; 85610; 87040; 87086; 90471; 90686; 93306; 93880; J1650; 92610; 97110; G0378